=== PATIENT | male | born 1945 | race Caucasian/White ===

== ENCOUNTER 2016-10-29 06:26 | Emergency (ER) | payer MEDICARE ==
[2016-10-29] MEDS ORDERED: cloNIDine HCL 0.1 MG TAB PO STA ×2 (06:41→06:42)
--- NOTE | 2016-10-29 06:48 | ED ---
General Adult HPI - General Source: patient, family, RN notes reviewed Mode of arrival: ambulatory Limitations: no limitations <Ethan Snyder - Last Filed: 10/29/16 06:46> <Ethan Lainez - Last Filed: 10/29/16 07:52> - General Chief complaint: ENT Stated complaint: Nosebleed Time Seen by Provider: 10/29/16 06:30 - History of Present Illness Initial comments: This is a 71-year-old male presents emergency Department with a 45 minute history of a nosebleed. Patient states that he was finally also in his left naris started bleeding. Patient states he try to hold up at he was getting blood on the back associated decided to come to the emergency department. Patient denies any trauma to the nose. Patient denies any blood thinners. Patient denies any previous history of significant nosebleeds. (Ethan Snyder) - Related Data Home Medications Medication Instructions Recorded Confirmed Atorvastatin [Lipitor] 20 mg PO DAILY 09/07/15 10/29/16 Levothyroxine Sodium [Synthroid] 175 mcg PO DAILY 09/07/15 10/29/16 Fluticasone Nasal [place]se[place] [Flonase 2 spr EA NOSTRIL DAILY 10/29/16 10/29/16 Nasal Osse[place]] Ranitidine HCl [Zantac] 150 mg PO DAILY PRN 10/29/16 10/29/16 Allergies Allergy/AdvReac Type Severity Reaction Status Date / Time Penicillins AdvReac Swelling Verified 10/29/16 07:12 Review of Systems ROS Other: All systems not noted in ROS Statement are negative. <Ethan Snyder - Last Filed: 10/29/16 06:46> ROS Other: All systems not noted in ROS Statement are negative. <Ethan Lainez - Last Filed: 10/29/16 07:52> ROS Statement: Those systems with pertinent positive or pertinent negative responses have been documented in the HPI. 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 Patient is in mild distress. EYES Patient's pupils are equal and round. Extraocular motion is intact ENT Unable to examine of the nose isn't actively bleeding. A clamp was placed on his nose immediately. SKIN Unremarkable NEURO The patient is alert and oriented 3 PYSCH Patient has normal interpersonal interactions. (Ethan Snyder) Course <Ethan Snyder - Last Filed: 10/29/16 06:46> <Ethan Lainez - Last Filed: 10/29/16 07:52> Vital Signs 10/29/16 10/29/16 06:28 07:16 Temperature 97.5 F L Pulse Rate 104 H 85 Respiratory 20 18 Rate Blood Pressure 181/114 173/109 O2 Sat by Pulse 96 94 L Oximetry - Reevaluation(s) Reevaluation #1: 10/29/16 07:52 Nosebleed has stopped and remains controlled (Ethan Lainez) Medical Decision Making <Ethan Snyder - Last Filed: 10/29/16 06:46> <Ethan Lainez - Last Filed: 10/29/16 07:52> - Medical Decision Making Dr. Lainez will be taking over the care of this patient at 7 AM (Ethan Snyder) 71 male to the ER for evaluation. Patient presents with nosebleed, high blood pressure, blood pressure is much improved at this point,. Patient will be discharged home as he is refusing further intervention at this time (Ethan Lainez) Disposition <Ethan Snyder - Last Filed: 10/29/16 06:46> <Ethan Lainez - Last Filed: 10/29/16 07:52> Clinical Impression: Epistaxis Disposition: HOME SELF-CARE Condition: Good Instructions: Nosebleed (ED) Referrals: David Zaidi MD [Primary Care Provider] - 1-2 days
[2016-10-29 08:09] VITALS: BP 168/106; PULSE 80; RESP 16; TEMP 97.6
== END 2016-10-29 08:08 | disposition home or self-care (01) ==
LOC: EC 06:26
DX: R04.0 Epistaxis (principal); E78.5 Hyperlipidemia, unspecified; I10 Essential (primary) hypertension; E07.9 Disorder of thyroid, unspecified; Z79.51 Long term (current) use of inhaled steroids; Z79.899 Other long term (current) drug therapy; Z88.0 Allergy status to penicillin; Z87.09 Personal history of other diseases of the respiratory system
CPT/HCPCS: 99283

== ENCOUNTER → 2018-07-06 | Outpatient (CLI) | payer MEDICARE ==
[2018-07-06 07:11] LABS: Appearance,Urine Clear (Clear); Bilirubin,Urine Negative (Negative); Blood,Urine Negative (Negative); Color,Urine Yellow; Glucose,Urine (UA) Negative (Negative); Ketones,Urine Negative (Negative); Leukocyte Esterase,Urine Negative (Negative); Nitrite,Urine Negative (Negative); Protein,Urine Trace (Negative); Specific Gravity,Urine 1.022 (1.001-1.035); Urobilinogen,Urine <2.0 mg/dL (<2.0)
[2018-07-06 07:14] LABS: HCT 47.4 % (39.0-53.0); HGB 15.2 gm/dL (13.0-17.5); MCH 28.9 pg (25.0-35.0); MCV 90.3 fL (80.0-100.0); Mean Platelet Volume 6.3; Platelet Count 305 k/uL (150-450); RBC 5.25 m/uL (4.30-5.90); RDW 12.8 % (11.5-15.5); WBC 6.5 k/uL (3.8-10.6)
[2018-07-06 12:48] LABS: T4, Free (Free Thyroxine) 1.2 ng/dL (0.80-1.80)
[2018-07-06 12:57] LABS: Albumin 4.1 g/dL (3.80-4.90); Albumin/Globulin Ratio 2.28 (1.20-2.10); Calcium 8.8 mg/dL (8.7-10.3); Globulin 1.8 g/dL (1.6-3.3); LDL Cholesterol,Calculated 80.8 mg/dL (0.0-131.0); Potassium 4.9 mmol/L (3.5-5.5); Total Bilirubin 0.5 mg/dL (0.3-1.2); Total Protein 5.9 g/dL (6.2-8.2); VLDL Calculation 13.2 mg/dL (5.00-40.00)
== END ==
LOC: LABWHC1 06:35
PROVIDERS: ATTEND Internal Medicine
DX: C73 Malignant neoplasm of thyroid gland (principal); N40.0 Benign prostatic hyperplasia without lower urinary tract symptoms; E78.5 Hyperlipidemia, unspecified; E03.9 Hypothyroidism, unspecified; Z12.5 Encounter for screening for malignant neoplasm of prostate
CPT/HCPCS: 84439; 80061; 80053; 84443; 85027; 81003; 36415; G0103

== ENCOUNTER 2018-08-02 08:00 | Emergency (ER) | payer MEDICARE ==
[2018-08-02] MEDS ORDERED: SODIUM CHLORIDE 0.9% 1,000 ML IV STA (08:33)
--- NOTE | 2018-08-02 08:39 | ED ---
General Adult HPI - General Source: patient, RN notes reviewed Mode of arrival: ambulatory Limitations: no limitations <Alan Orozco - Last Filed: 08/02/18 10:28> <Amandeep Munguia - Last Filed: 08/02/18 10:45> - General Chief complaint: Abdominal Pain Stated complaint: ABDOMINAL PAIN Time Seen by Provider: 08/02/18 08:29 - History of Present Illness Initial comments: Patient 72-year-old male presented to the emergency room today with a chief complaint of right lower quadrant pain that started yesterday. Patient states an episode in the morning. He does admit that he felt nauseated. He states his pain went away was fine throughout the day. He states he woke up again this morning with pain in the right lower quadrant. Describes it as a tall pain. Patient states pain is again improving. He denies any other complaints or symptoms at this time. States not had similar symptoms in the past. Patient denies any recent fever, chills, shortness of breath, chest pain, back pain, numbness or tingling, dysuria or hematuria, constipation or diarrhea, headaches or visual changes, or any other complaints. (Alan Orozco) - Related Data Home Medications Medication Instructions Recorded Confirmed Atorvastatin [Lipitor] 20 mg PO DAILY 09/07/15 08/02/18 Levothyroxine Sodium [Synthroid] 175 mcg PO DAILY 09/07/15 08/02/18 Ibuprofen [Motrin Ib] 600 mg PO Q6HR PRN 08/02/18 08/02/18 Losartan [Cozaar] 50 mg PO DAILY 08/02/18 08/02/18 Allergies Allergy/AdvReac Type Severity Reaction Status Date / Time Penicillins AdvReac Swelling Verified 08/02/18 10:10 Review of Systems ROS Other: All systems not noted in ROS Statement are negative. <Alan Orozco - Last Filed: 08/02/18 10:28> ROS Other: All systems not noted in ROS Statement are negative. <Amandeep Munguia - Last Filed: 08/02/18 10:45> ROS Statement: Those systems with pertinent positive or pertinent negative responses have been documented in the HPI. 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 Eye: There is normal conjunctiva bilaterally. No signs of icterus. Ears, nose, mouth and throat: There are moist mucous membranes and no oral lesions. Neck: The neck is supple, there is no tenderness or JVD. Cardiovascular: There is a regular rate and rhythm. No murmur, rub or gallop is appreciated. Respiratory: Lungs are clear to auscultation, respirations are non-labored, breath sounds are equal. No wheezes, stridor, rales, or rhonchi. Gastrointestinal: Abdomen soft nontender. No rebound, guarding or CVA tenderness. Musculoskeletal: Normal ROM, no tenderness. Neurological: A&O x 3. CN II-XII intact, There are no obvious motor or sensory deficits. Coordination appears grossly intact. Speech is normal. Skin: Skin is warm and dry and no rashes or lesions are noted. Psychiatric: Cooperative, appropriate mood & affect, normal judgment. (Alan Orozco) Course <Alan Orozco - Last Filed: 08/02/18 10:28> <Amandeep Munguia - Last Filed: 08/02/18 10:45> Vital Signs 08/02/18 08/02/18 08:09 09:01 Temperature 97.9 F 98.5 F Pulse Rate 101 H 91 Respiratory 18 16 Rate Blood Pressure 170/109 177/110 O2 Sat by Pulse 96 93 L Oximetry - Reevaluation(s) Reevaluation #1: 08/02/18 10:45 PA supervision: I proceeded [id number] evaluation the patient did discuss the findings with him and his . Patient did have a kidney stone that appears with past the bladder at this time. He has no prior history of kidney stones. I do agree with the assessment and plan. (Amandeep Munguia) Medical Decision Making - Lab Data Result diagrams: 08/02/18 08:41 08/02/18 08:41 <Alan Orozco - Last Filed: 08/02/18 10:28> - Lab Data Result diagrams: 08/02/18 08:41 08/02/18 08:41 <Amandeep Munguia - Last Filed: 08/02/18 10:45> - Medical Decision Making Patient reexamined showing no signs of distress is resting comfortably. Has no pain. Patient's CT abdomen and pelvis reviewed and does show kidney stone in the bladder. Patient had small amount of blood in his urine. Patient's pain- free at this time. He is advised on family doctor over the next 2 days or urologist. Prostate was enlarged. Patient will be discharged advised return for any other concerns. (Alan Orozco) - Lab Data Lab Results 08/02/18 08/02/18 08/02/18 Range/Units 08:41 08:41 08:43 WBC 10.4 (3.8-10.6) k/uL RBC 5.50 (4.30-5.90) m/uL Hgb 16.1 (13.0-17.5) gm/dL Hct 49.8 (39.0-53.0) % MCV 90.6 (80.0-100.0) fL MCH 29.2 (25.0-35.0) pg MCHC 32.3 (31.0-37.0) g/dL RDW 13.1 (11.5-15.5) % Plt Count 263 (150-450) k/uL Neutrophils % 78 % Lymphocytes % 12 % Monocytes % 8 % Eosinophils % 1 % Basophils % 0 % Neutrophils # 8.2 H (1.3-7.7) k/uL Lymphocytes # 1.2 (1.0-4.8) k/uL Monocytes # 0.8 (0-1.0) k/uL Eosinophils # 0.1 (0-0.7) k/uL Basophils # 0.0 (0-0.2) k/uL Sodium 143 (137-145) mmol/L Potassium 4.1 (3.5-5.1) mmol/L Chloride 110 H (98-107) mmol/L Carbon Dioxide 23 (22-30) mmol/L Anion Gap 10 mmol/L BUN 20 (9-20) mg/dL Creatinine 1.49 H (0.66-1.25) mg/dL Est GFR (CKD-EPI)AfAm 54 (>60 ml/min/1.73 sqM) Est GFR (CKD-EPI)NonAf 47 (>60 ml/min/1.73 sqM) Glucose 124 H (74-99) mg/dL Calcium 9.9 (8.4-10.2) mg/dL Total Bilirubin 0.9 (0.2-1.3) mg/dL AST 29 (17-59) U/L ALT 38 (21-72) U/L Alkaline Phosphatase 99 (38-126) U/L Troponin I (0.000-0.034) ng/mL Total Protein 7.7 (6.3-8.2) g/dL Albumin 4.5 (3.5-5.0) g/dL Amylase 96 (30-110) U/L Lipase 105 (23-300) U/L Urine Color Yellow Urine Appearance Cloudy (Clear) Urine pH 5.5 (5.0-8.0) Ur Specific Ding[place] 1.029 (1.001-1.035) Urine Protein 1+ H (Negative) Urine Glucose (UA) Negative (Negative) Urine Ketones Negative (Negative) Urine Blood Trace H (Negative) Urine Nitrite Negative (Negative) Urine Bilirubin Negative (Negative) Urine Urobilinogen 2.0 (<2.0) mg/dL Ur Leukocyte Esterase Negative (Negative) Urine RBC 32 H (0-5) /hpf Urine WBC 4 (0-5) /hpf Hyaline Casts 4 H (0-2) /lpf Urine Mucus Many H (None) /hpf 08/02/18 Range/Units 08:45 WBC (3.8-10.6) k/uL RBC (4.30-5.90) m/uL Hgb (13.0-17.5) gm/dL Hct (39.0-53.0) % MCV (80.0-100.0) fL MCH (25.0-35.0) pg MCHC (31.0-37.0) g/dL RDW (11.5-15.5) % Plt Count (150-450) k/uL Neutrophils % % Lymphocytes % % Monocytes % % Eosinophils % % Basophils % % Neutrophils # (1.3-7.7) k/uL Lymphocytes # (1.0-4.8) k/uL Monocytes # (0-1.0) k/uL Eosinophils # (0-0.7) k/uL Basophils # (0-0.2) k/uL Sodium (137-145) mmol/L Potassium (3.5-5.1) mmol/L Chloride (98-107) mmol/L Carbon Dioxide (22-30) mmol/L Anion Gap mmol/L BUN (9-20) mg/dL Creatinine (0.66-1.25) mg/dL Est GFR (CKD-EPI)AfAm (>60 ml/min/1.73 sqM) Est GFR (CKD-EPI)NonAf (>60 ml/min/1.73 sqM) Glucose (74-99) mg/dL Calcium (8.4-10.2) mg/dL Total Bilirubin (0.2-1.3) mg/dL AST (17-59) U/L ALT (21-72) U/L Alkaline Phosphatase (38-126) U/L Troponin I <0.012 (0.000-0.034) ng/mL Total Protein (6.3-8.2) g/dL Albumin (3.5-5.0) g/dL Amylase (30-110) U/L Lipase (23-300) U/L Urine Color Urine Appearance (Clear) Urine pH (5.0-8.0) Ur Specific Ding[place] (1.001-1.035) Urine Protein (Negative) Urine Glucose (UA) (Negative) Urine Ketones (Negative) Urine Blood (Negative) Urine Nitrite (Negative) Urine Bilirubin (Negative) Urine Urobilinogen (<2.0) mg/dL Ur Leukocyte Esterase (Negative) Urine RBC (0-5) /hpf Urine WBC (0-5) /hpf Hyaline Casts (0-2) /lpf Urine Mucus (None) /hpf Disposition Is patient prescribed a controlled substance at d/c from ED?: No Time of Disposition: 10:29 <Alan Orozco - Last Filed: 08/02/18 10:28> <Amandeep Munguia - Last Filed: 08/02/18 10:45> Clinical Impression: Kidney stone Disposition: HOME SELF-CARE Condition: Good Instructions (If sedation given, give patient instructions): Kidney Stones (ED) Additional Instructions: Please use medication as discussed. Please follow-up with urologist/family doctor in the next 2 days of symptoms have not improved. Please return to emergency room if the symptoms increase or worsen or for any other concerns. Referrals: David Zaidi MD [Primary Care Provider] - 1-2 days Landen Cramer MD [STAFF PHYSICIAN] - 1-2 days
[2018-08-02 09:03] VITALS: RESP 16
[2018-08-02 09:14] LABS: Basophils % (A) 0 %; Eosinophils # (A) 0.1 k/uL (0-0.7); Eosinophils % (A) 1 %; HCT 49.8 % (39.0-53.0); HGB 16.1 gm/dL (13.0-17.5); Lymphocytes # (A) 1.2 k/uL (1.0-4.8); Lymphocytes % (A) 12 %; MCH 29.2 pg (25.0-35.0); MCHC 32.3 g/dL (31.0-37.0); MCV 90.6 fL (80.0-100.0); Mean Platelet Volume 6.7; Monocytes # (A) 0.8 k/uL (0-1.0); Monocytes % (A) 8 %; Neutrophils # (A) 8.2 k/uL (1.3-7.7); Neutrophils % (A) 78 %; Platelet Count 263 k/uL (150-450); RDW 13.1 % (11.5-15.5); WBC 10.4 k/uL (3.8-10.6)
[2018-08-02 09:18] LABS: Appearance,Urine Cloudy (Clear); Bilirubin,Urine Negative (Negative); Blood,Urine Trace (Negative); Color,Urine Yellow; Glucose,Urine (UA) Negative (Negative); Hyaline Casts,Urine 4 /lpf (0-2); Ketones,Urine Negative (Negative); Leukocyte Esterase,Urine Negative (Negative); Mucus,Urine Many /hpf; Nitrite,Urine Negative (Negative); PH, Urine 5.5 (5.0-8.0); Protein,Urine 1+ (Negative); RBC,Urine 32 /hpf (0-5); Specific Gravity,Urine 1.029 (1.001-1.035); WBC,Urine 4 /hpf (0-5)
[2018-08-02 09:35] LABS: Albumin 4.5 g/dL (3.5-5.0); Calcium 9.9 mg/dL (8.4-10.2); Total Bilirubin 0.9 mg/dL (0.2-1.3); Total Protein 7.7 g/dL (6.3-8.2)
[2018-08-02 09:36] LABS: Potassium 4.1 mmol/L (3.5-5.1)
--- NOTE | 2018-08-02 10:13 | CT ---
EXAMINATION TYPE: CT abdomen pelvis wo con DATE OF EXAM: 08/02/2018 COMPARISON: None HISTORY: RLQ pain CT DLP: 607.17 mGycm Examination of the solid and hollow viscera is limited given the lack of contrast. FINDINGS: LUNG BASES: No evidence for nodule. No evidence for infiltrate. Small hiatal hernia. LIVER/GB: The gallbladder is unremarkable. No space-occupying hepatic lesion. PANCREAS: No pancreatic mass identified. No inflammatory process seen. SPLEEN: No evidence for splenomegaly. No intrasplenic lesions seen. ADRENALS: No adrenal nodules identified. No evidence for thickening. KIDNEYS: 3 mm calculus is noted within the urinary bladder. I suspect that this reflects recently pas sed calculus given the right perinephric stranding and mild residual hydronephrosis. No obstructing c alculus is currently identified. Left renal collecting system is of normal caliber. No renal masses a re detected. BOWEL: Intraluminal lipoma at the level of the transverse duodenum. Appendix has a normal appearance. No evidence of bowel obstruction. No inflammatory process. Lymph nodes: No evidence for adenopathy greater than 1 cm. Abdominal aorta: Atheromatous changes seen. No evidence for aneurysm. Genital organs: Prostate gland enlargement. Other: Fat-containing inguinal hernias noted. IMPRESSION: 1. Mild residual right-sided hydronephrosis with perinephric stranding. Calculus is noted within the urinary bladder consistent with recent stone passage. 2. Lipoma of the transverse duodenum. 3. Prostate gland enlargement.
[2018-08-02 10:52] VITALS: BP 173/97; PULSE 89; TEMP 97.6
== END 2018-08-02 10:50 | disposition home or self-care (01) ==
LOC: EC 08:00
DX: N20.0 Calculus of kidney (principal); N40.0 Benign prostatic hyperplasia without lower urinary tract symptoms; E78.5 Hyperlipidemia, unspecified; I10 Essential (primary) hypertension; E07.9 Disorder of thyroid, unspecified; Z90.89 Acquired absence of other organs; Z79.890 Hormone replacement therapy; Z79.899 Other long term (current) drug therapy; Z88.0 Allergy status to penicillin
CPT/HCPCS: 36415; 74176; 80053; 81001; 82150; 83690; 84484; 85025; 96360; 99284

== ENCOUNTER 2018-08-15 07:05 | Inpatient (IN) | payer MEDICARE ==
[2018-08-15] MEDS ORDERED: ATORVASTATIN 80 MG TAB PO STA (07:27)
[2018-08-15] MEDS ORDERED: ASPIRIN 81 MG PO STA (07:27)
[2018-08-15] MEDS ORDERED: HEPARIN SODIUM,PORCINE 5,000 UNIT/ML 1 ML VIAL SQ STA (07:27)
[2018-08-15] MEDS ORDERED: NALOXONE 0.4 MG/ML 1 ML VIAL IV PRN (07:28)
--- NOTE | 2018-08-15 07:31 | ED ---
General Adult HPI - General Chief complaint: Chest Pain Stated complaint: chest pain Time Seen by Provider: 08/15/18 07:12 Source: patient, RN notes reviewed, old records reviewed Mode of arrival: ambulatory Limitations: no limitations - History of Present Illness Initial comments: 72-year-old male presenting for evaluation of chest pain. Patient's symptoms began at approximately 9:30 PM, was 10 hours prior to arrival. Began as left shoulder pain, progressed to left-sided chest pain. He was diaphoretic and had several episodes of nausea and vomiting. Pain is improved this morning, patient feels unwell, states he feels like he has the flu. No cough. No dyspnea. No abdominal pain. No history of CAD. Patient does have history of hypertension and hyperlipidemia. - Related Data Home Medications Medication Instructions Recorded Confirmed Atorvastatin [Lipitor] 20 mg PO DAILY 09/07/15 08/02/18 Levothyroxine Sodium [Synthroid] 175 mcg PO DAILY 09/07/15 08/02/18 Ibuprofen [Motrin Ib] 600 mg PO Q6HR PRN 08/02/18 08/02/18 Losartan [Cozaar] 50 mg PO DAILY 08/02/18 08/02/18 Allergies Allergy/AdvReac Type Severity Reaction Status Date / Time Penicillins AdvReac Swelling Verified 08/15/18 07:08 Review of Systems ROS Statement: Those systems with pertinent positive or pertinent negative responses have been documented in the HPI. ROS Other: All systems not noted in ROS Statement are negative. 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 Absent: tenderness, meningismus Respiratory exam: Present: normal lung sounds bilaterally. Absent: respiratory distress Cardiovascular Exam: Present: regular rate, normal rhythm GI/Abdominal exam: Present: soft. Absent: distended, tenderness Extremities exam: Present: normal inspection, normal capillary refill, other ( Normal pulse exam, 2+) Neurological exam: Present: alert, oriented X3, CN II-XII intact. Absent: motor sensory deficit Psychiatric exam: Present: normal affect, normal mood Skin exam: Present: warm, intact, diaphoretic. Absent: cyanosis Course Vital Signs 08/15/18 07:08 Temperature 97.5 F L Pulse Rate 104 H Respiratory 18 Rate Blood Pressure 162/108 O2 Sat by Pulse 99 Oximetry EKG Findings - EKG Comments: EKG Findings:: EKG: Normal sinus rhythm, acute KS with ST segment elevation in precordial leads. Rate of 69, TN interval 176, QRS duration 108, QTC 432. Previous EKG obtained 08/02/2018, sinus rhythm with no ST segment changes. Medical Decision Making - Medical Decision Making 72-year-old male history of hypertension and hyperlipidemia presenting for evaluation of chest pain which began 10 hours prior. Pain was typical in nature , left-sided radiating to the left shoulder with diaphoresis, nausea and vomiting. EKG shows acute KS. 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 Case discussed with both cardiology Dr. Renee and admitting physician. Patient taken emergently to [facility]. X-ray, and laboratory studies pending. Disposition Clinical Impression: ST elevation myocardial infarction (STEMI) Disposition: ADMITTED IP TO THIS HOSP Condition: Serious Is patient prescribed a controlled substance at d/c from ED?: No Decision to Admit Reason: Admit from EC Decision Date: 08/15/18 Decision Time: 17:25
[2018-08-15] MEDS ORDERED: LIDOCAINE 1% INJ 10MG/ML (20 ML MDV) SQ ONE (07:47)
[2018-08-15] MEDS ORDERED: fentaNYL (PF) 50 MCG/ML 2 ML AMP IVP ONE (07:47)
--- NOTE | 2018-08-15 07:53 | XR ---
EXAMINATION TYPE: XR chest 1V portable DATE OF EXAM: 08/15/2018 COMPARISON: NONE HISTORY: Chest pain TECHNIQUE: Single frontal view of the chest is obtained. FINDINGS: There are cardiac leads. The aorta is dense. Technique somewhat apical lordotic. There is no focal air space opacity, pleural effusion, or pneumothorax seen. The cardiac silhouette size is w ithin normal limits. The osseous structures are intact. IMPRESSION: No acute process.
[2018-08-15 07:54] LABS: Basophils # (A) 0.1 k/uL (0-0.2); Basophils % (A) 0 %; Eosinophils % (A) 0 %; HCT 45.6 % (39.0-53.0); HGB 14.6 gm/dL (13.0-17.5); Lymphocytes % (A) 6 %; MCHC 32.1 g/dL (31.0-37.0); MCV 90.4 fL (80.0-100.0); Mean Platelet Volume 6.6; Monocytes # (A) 0.7 k/uL (0-1.0); Monocytes % (A) 4 %; Neutrophils # (A) 13.4 k/uL (1.3-7.7); Neutrophils % (A) 88 %; Platelet Count 277 k/uL (150-450); RBC 5.04 m/uL (4.30-5.90); RDW 13.1 % (11.5-15.5); WBC 15.2 k/uL (3.8-10.6)
[2018-08-15] MEDS ORDERED: TICAGRELOR 90 MG TAB PO ONE (07:55)
[2018-08-15] MEDS ORDERED: ONDANSETRON 4 MG/2 ML VIAL IVP ONE (07:55)
[2018-08-15 07:59] LABS: Albumin 4.3 g/dL (3.5-5.0); Calcium 9.7 mg/dL (8.4-10.2); Potassium 4.2 mmol/L (3.5-5.1); Total Bilirubin 0.8 mg/dL (0.2-1.3); Total Protein 7.2 g/dL (6.3-8.2)
[2018-08-15 08:11] LABS: INR 0.9 (<1.2); Prothrombin Time 9.9 sec (9.0-12.0)
[2018-08-15] MEDS ORDERED: BIVALIRUDIN BOLUS 250 MG/50 ML IV ONE (08:16)
[2018-08-15] MEDS ORDERED: BIVALIRUDIN 250 MG in SODIUM CHLORIDE 0.9% 50 ML IV ONE (08:16)
[2018-08-15] MEDS ORDERED: IV FLUID CONTINUATION 1,000 ML IV ONE (08:16)
[2018-08-15] MEDS ORDERED: IOPAMIDOL-370 100ML BTL INJ ONE ×2 (08:21)
[2018-08-15 08:26] LABS: Creatine Kinase MB 24.6 ng/mL (0.0-2.4)
[2018-08-15] MEDS ORDERED: ATROPINE SULFATE 0.1 MG/ML 10ML SYRINGE IV PRN (08:26)
[2018-08-15] MEDS ORDERED: NITROGLYCERIN SL TABS 0.4 MG TAB SUBLINGUAL PRN (08:26)
[2018-08-15] MEDS ORDERED: RX INFO: IV CONTRAST WAS GIVEN 1 EACH MISC MISCELLANE PRN (08:26)
[2018-08-15] MEDS ORDERED: MAG HYDROX/AL HYDROX/SIMETH 30 ML CUP PO PRN (08:26)
[2018-08-15] MEDS ORDERED: SODIUM CHLORIDE 0.9% 1,000 ML IV SCH (08:30)
--- NOTE | 2018-08-15 08:31 | CONS ---
CONSULTATION Mr. Villatoro is a 72-year-old male with a history of hypertension, hyperlipidemia, no prior documented history of coronary artery disease who presented to the emergency room with symptoms of chest discomfort. The discomfort started yesterday evening, persisted throughout the night with nausea, came in early this morning to the emergency room, was noted to have ST-segment elevation in the anterolateral leads with QS pattern. Patient denies any prior history of cardiac disease. He is reasonably active physically without difficulty. He denies any dizziness or palpitation. He denies any PND, orthopnea, or peripheral edema. His coronary risk factors are remarkable for history of hypertension, hyperlipidemia. He is a nonsmoker, nondiabetic. MEDICATION: Include losartan and simvastatin. REVIEW OF SYSTEMS: Persistent has no recent wheezing. No cough. No history of obstructive lung disease. GI SYSTEM: No recent GI bleeding. No peptic ulcer disease. SYSTEM: He had recent nephrolithiasis. NERVOUS SYSTEM: No stroke or seizure. PHYSICAL EXAMINATION: He is a 72-year-old male, alert, oriented, in no apparent distress. Evaluated in the cardiac catheterization lab. Heart rate in the 70s. Blood pressure 134/80. HEAD: Normocephalic. EYES: Sclerae nonicteric. NECK: Good upstroke, no bruit. LUNGS: Clear to auscultation anteriorly. HEART: Regular rate and rhythm, S1, S2. No S3. No rub or gallop appreciated. ABDOMEN: Soft, nontender. Positive bowel sounds, no organomegaly. EXTREMITIES: No edema, intact pulses. EKG reveals sinus mechanism, rate of 69 with QS in V1 to V6 with ST-segment elevation in QS in 1 and aVL consistent with anterolateral wall myocardial infarction. IMPRESSION: 1. Acute anterior myocardial infarction, started last night. 2. Hypertension. 3. Hyperlipidemia. RECOMMENDATION: Will proceed with emergent cardiac catheterization to further assess the status and guide the treatment. Depending on his progress, further recommendation will be made. Thank you for this consult. Will follow with you. MMODL / IJN: [id number] /
[2018-08-15 08:39] LABS: Troponin I 1.22 ng/mL (0.000-0.034)
--- NOTE | 2018-08-15 08:46 | CC ---
CARDIAC CATHETERIZATION REPORT Mr. Villatoro is a 72-year-old male with history of hypertension, hyperlipidemia, who presented with symptoms of chest discomfort that started last night around 9:30, associated with vomiting. He came in early this morning and was noted to have evidence of ST-segment elevation anteriorly with QS pattern. In view of that, recommendation made regarding cardiac catheterization. The procedure, risks and complications were discussed with the patient who is in full understanding and agreement. PROCEDURE: Patient was brought to the dental laboratory technology teacher in a fasting semi-sedated state after receiving fentanyl and Benadryl and achieving moderate conscious sedated state. Using Xylocaine anesthesia and Seldinger technique, a 6-Beninese sheath was introduced in the right femoral artery. Selective right and left angiography was performed. A 6-Beninese FL4 guiding catheter after performing angioplasty and stenting of the LAD, a 6-Beninese 4 bend right Esperanza catheter was introduced into the system and images of the right coronary artery was performed. Following that, a 6-Beninese tight pigtail catheter was introduced in the left ventricle and a 30 degree CARREON view of the left ventricle was obtained. Following that, catheter and sheaths were removed. Hemostasis was obtained with deployment of an Angio-Seal. There was no immediate complication. Patient is returned to his room in stable condition. FINDINGS: LEFT MAIN: This is a large-sized vessel, bifurcating into left circumflex, left anterior descending artery. Left main coronary artery has no evidence of obstructive coronary artery disease. LEFT ANTERIOR DESCENDING ARTERY: This vessel is totally occluded proximally with no antegrade flow. LEFT CIRCUMFLEX: This is a nondominant vessel, giving rise to 2 large obtuse marginal branches. The left circumflex as well as branches have no evidence of obstructive coronary artery disease. RIGHT CORONARY ARTERY: This is a large dominant vessel, bifurcating into PDA and posterolateral segment and branches. The right coronary artery as well as branches have no evidence of obstructive coronary artery disease. LEFT VENTRICULOGRAM: Left ventriculogram is performed in 30-degree CARREON view and revealed a anteroapical akinesis. The ejection fraction is estimated at 25%-30%. There was no significant mitral regurgitation. HEMODYNAMICS: There was no gradient across the aortic valve. The left ventricular end- diastolic pressure is 24 mmHg. CONCLUSION: 1. Acutely occluded proximal LAD. 2. Severely impaired left ventricular systolic function. RECOMMENDATION: In view of finding anatomy, I recommend proceeding with angioplasty and stenting of the LAD. The procedures, risks and complication were discussed with the patient who is in full understanding and agreement. MMODL / IJN: [id number] /
--- NOTE | 2018-08-15 09:07 | LTR ---
DATE OF SERVICE: 08/15/2018 RE: Lee Villatoro Dear Dr. Zaidi; I had the pleasure to perform cardiac catheterization and coronary angioplasty and stenting on Mr. Villatoro At [facility] on August 15 and a full copy of the procedure note will be forwarded to you. In brief, he underwent successful stenting of the proximal LAD with reduction of stenosis from 100% to 0%. Unfortunately, he had significant LV dysfunction on presentation. I am hopeful that we will see some improvement in the LV function otherwise he will be a candidate for a LifeVest prior to his discharge. I will keep you updated on his progress and thank you again for allowing me to participate in this patient's care. Please feel free to call for any questions. Sincerely yours, MD DARCY Gallardo / [place]: [id number] /
--- NOTE | 2018-08-15 09:07 | PTCA ---
PERCUTANEOUSTRANS CORORONARY ANGIOGRAPHY Mr. Villatoro is a 72-year-old male with history of hypertension, hyperlipidemia, who presented with an acute anterior myocardial infarction. His cardiac catheterization revealed acutely occluded proximal LAD. In view of that, recommendation made regarding angioplasty and stenting. The procedure, risks and complications were discussed with the patient who is in full understanding and agreement. PROCEDURE: Using the 6-Ethiopian FL4 guiding catheter, a 0.014 balanced medium weight J-wire was advanced across the lesion, positioned distal LAD. Following that, a 2.5 x 12 mm Trek balloon was advanced and inflation to 10 atmospheres was done. Following that, the balloon was removed and a 4.0 x 18 mm Xience Lucina stent was deployed, postdilated at 14 atmospheres after the last inflation, after appropriate wait, the balloon and the guidewire were withdrawn back in the guiding catheter. Images were obtained and repeated. Those images reveal stable successful stenting. At that point, the guiding catheter, the balloon and the guidewire were removed. Images of the right coronary artery and left ventriculogram was performed. Following that, catheter and sheath were removed. Hemostasis was obtained with deployment of an Angio-Seal. There was no immediate complication. The patient was returned to his room in stable condition. Of note, the patient received Angiomax per protocol as well as oral loading dose of Brilinta. He had no discomfort at the end procedure be it persistent ST-segment elevation. RESULTS: Successful stenting of the totally occluded proximal LAD with reduction of stenosis from 100% to 0%. RECOMMENDATION: Patient will be continued on aspirin, Brilinta, beta yassine, POLA inhibitor, statin, and unfortunately because of the delay in the patient seeking medical attention, it is possible that some of the LV systolic dysfunction will be permanent. Will follow him closely to see if there is no improvement and the patient may be a candidate for a LifeVest. Those findings and recommendation were discussed with the patient and his family who are in full understanding and agreement. Duration of the procedure 27 minutes. MMODL / IJN: [id number] /
[2018-08-15 15:47] LABS: Glucose,Whole Blood 135 mg/dL (75-99)
[2018-08-15] MEDS: METOPROLOL TARTRATE 25 MG TAB PO SCH ×2 (16:41→20:56)
[2018-08-15] MEDS: SPIRONOLACTONE 25 MG TAB PO SCH (16:51)
[2018-08-15] MEDS: LOSARTAN 25 MG TAB PO SCH (16:51)
[2018-08-15] MEDS ORDERED: ONDANSETRON 4 MG/2 ML VIAL IVP PRN (21:19)
--- NOTE | 2018-08-15 23:47 | HP ---
HISTORY AND PHYSICAL CHIEF COMPLAINT: Chest and shoulder pain. HISTORY OF PRESENT ILLNESS: This 72-year-old gentleman presents to the emergency room with a complaint of about a 10-hour duration of chest pain which is mostly left upper chest, shoulder and both arms. The patient had significant nausea and vomiting with that but denied any shortness of breath; had some diaphoresis. He had the pain off and on through the night. He thought it was his bad shoulder. At other times he thought it was his stomach. The patient did not relate this to cardiac pain. In the morning, since he was not feeling well, he presented to the emergency room. In the ER the patient was noted on EKG to have QS patterns in the anterior leads, but significant ST elevations with also some ST elevation in the high lateral leads. In view of this, a STEMI was alerted and the patient was taken for cardiac cath by Dr. Renee. The patient had a total occlusion of the LAD. This was stented. There was no collateral circulation . The patient also had a low ejection fraction on the left ventricular function. He does not have many symptoms of CHF. The patient denies any symptoms of similar nature in the recent past. I have seen him post procedure this evening when I was called at about 4:00. I was not informed about the patient by the ER. The nurse had called me regarding the patient to inform me that the patient had been admitted under my name. 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 His blood pressures in the office are high; however, he says his blood pressure he monitors at home has been in normal range. The patient also has a past history of gastroesophageal reflux diverticulosis of the colon without complication and herpes zoster infection in the past. PAST SURGICAL HISTORY: Total thyroidectomy and a C3 schwannoma. SOCIAL HISTORY: Patient is , lives with his spouse. 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 He does exercise regularly at least 6 days a week. PERSONAL HISTORY: Never a smoker. Alcohol occasionally only, which is in fact very rarely. FAMILY MEDICAL HISTORY: Father at the age of 79 of cancer of the esophagus. Mother at the age of 99 with valvular heart disease. Brother is 75 with history of carcinoma of the bladder, doing reasonably well. He also has carcinoma of the prostate. A brother 61 has LD. Daughter, 40, in good health. Daughter, 37, in good health. REVIEW OF SYSTEMS: NEURO: Denies any headaches, dizziness. No double vision or blurred vision. No symptoms of TIA or syncope or seizures. PSYCH: No anxiety, depression. CARDIAC: Denies chest pain at present; earlier had the symptoms as mentioned above. RESPIRATORY: Denies any shortness of breath, cough, hemoptysis. GI: Had nausea, vomiting. No abdominal pain, diarrhea, constipation. : No symptoms of dysuria, hematuria. EXTREMITIES: No pain, edema. CONSTITUTIONAL: No fever, chills. HEMATOLOGICAL: No anemia or bleeding disorder. ENDOCRINE: No history of diabetes mellitus. History of hypothyroidism. SKIN: No rashes. CONSTITUTIONAL: No fever or chills, weight gain, weight loss. PHYSICAL EXAMINATION: [id number] gentleman who appears younger than stated age. VITAL SIGNS AT THE TIME OF MY EVALUATION: The patient was afebrile, pulse 67, respirations 17, blood pressure 120/82, pulse ox 94% on room air. HEENT: Normocephalic. Neck suppler. Pupils reactive. Nostrils clear. Oral cavity moist. Ears revealed no drainage. NECK: No JVD, carotid bruits or thyromegaly. CHEST: Clear to auscultation and percussion. CARDIAC: Normal S1, S2 with no gallops, murmurs or rubs appreciated. Rhythm was regular. ABDOMEN: Soft. No palpable masses. Bowel sounds normal. No organomegaly. No abdominal bruits. Extremities revealed no edema. Good pulses, both upper and lower extremities. NEUROLOGIC: Awake, alert, oriented x3 with well-coordinated movements. LABORATORY ASSESSMENT: White count 15.2, hemoglobin normal at 14.6. PT and INR normal. Electrolytes normal. BUN 26, creatinine 1.24, GFR 59, glucose random 157. CPK 275, troponin 1.220. EKG reveals QS pattern in anterior leads with ST elevation. Chest x-ray reveals no acute process. HOME MEDICATIONS: Include: 1. Losartan 50 mg daily. 2. Levothyroxine 175 mcg daily. 3. Ibuprofen p.r.n. 4. Lipitor 20 mg daily. ASSESSMENT: 1. Acute myocardial infarction. 2. Status post percutaneous transluminal coronary angioplasty and stenting of the left anterior descending coronary artery. 3. History of carcinoma of the thyroid. 4. Hypothyroidism, on replacement therapy. 5. Hyperlipidemia, on medical therapy. 6. Essential hypertension, on medical therapy. 7. Ischemic cardiomyopathy. PLAN: Patient is stable. Continue present medical regimen. Patient's condition was discussed with the patient. Medications, dietary regimens and exercise regimens down the road have been reviewed. Patient's condition is stable at present. Prognosis guarded. MMODL / IJN: [id number] /
[2018-08-16] MEDS: ZOLPIDEM 5 MG TAB PO PRN ×2 (00:17→22:42)
[2018-08-16 05:07] LABS: Basophils % (A) 0 %; Eosinophils # (A) 0.1 k/uL (0-0.7); Eosinophils % (A) 1 %; HCT 40.3 % (39.0-53.0); HGB 13.5 gm/dL (13.0-17.5); Lymphocytes # (A) 1.8 k/uL (1.0-4.8); Lymphocytes % (A) 15 %; MCH 30.2 pg (25.0-35.0); MCHC 33.4 g/dL (31.0-37.0); MCV 90.5 fL (80.0-100.0); Mean Platelet Volume 6.6; Monocytes % (A) 9 %; Neutrophils # (A) 8.7 k/uL (1.3-7.7); Neutrophils % (A) 74 %; Platelet Count 238 k/uL (150-450); RBC 4.45 m/uL (4.30-5.90); RDW 13.4 % (11.5-15.5); WBC 11.8 k/uL (3.8-10.6)
[2018-08-16 05:25] LABS: Calcium 8.8 mg/dL (8.4-10.2); Potassium 4.5 mmol/L (3.5-5.1)
[2018-08-16] MEDS: LEVOTHYROXINE 75 MCG TAB PO SCH (06:49)
[2018-08-16] MEDS: LEVOTHYROXINE 100 MCG TAB PO SCH (06:49)
--- NOTE | 2018-08-16 08:21 | PN ---
PROGRESS NOTE Mr. Villatoro is a 72-year-old male who presented with an acute anterior wall myocardial infarction with total occluded LAD, underwent stenting of that vessel. He is doing well this morning. He is denying any chest pain. His breathing has been stable. He denies any dizziness or palpitation. He denies any nausea. He is in sinus mechanism and hemodynamically he is stable. He continued to be on aspirin once a day, Lipitor 80 mg daily, losartan 25 mg daily, metoprolol tartrate 25 mg twice a day, Aldactone 25 mg daily, Brilinta 90 mg twice a day. PHYSICAL EXAMINATION: Blood pressure 117/70 with the heart rate in the 60s. LUNGS: Clear. HEART: Regular rate and rhythm. S1, S2. No S3. No rub. ABDOMEN: Soft, nontender. EXTREMITIES: No edema. Right groin hematoma. EKG revealed an evolving anterior wall myocardial infarction with QS pattern. LAB DATA: Lab data revealed a BUN and creatinine 20 and 1.13, potassium 4.5. Peak troponin 90.5 LDL is 72. Hemoglobin is 13.5. IMPRESSION: 1. Status post anterior myocardial infarction with severe ischemic cardiomyopathy and stenting of the LAD. 2. History of hypertension. 3. Hyperlipidemia. RECOMMENDATION: We will obtain an echocardiogram with Doppler today. I will follow his LV systolic function. Increase his level activity. He should be able to be transferred to telemetry floor today. If his LV function remains poor and below 35%, he will be a candidate for a LifeVest. MMJHONATAN / ELBAN: [id number] /
[2018-08-16] MEDS: METOPROLOL TARTRATE 25 MG TAB PO SCH ×3 (08:31→21:14)
[2018-08-16] MEDS: SPIRONOLACTONE 25 MG TAB PO SCH (08:31)
[2018-08-16] MEDS: ASPIRIN 81 MG PO SCH (08:31)
[2018-08-16] MEDS: TICAGRELOR 90 MG TAB PO SCH ×2 (08:32→20:01)
[2018-08-16] MEDS: LOSARTAN 25 MG TAB PO SCH (08:33)
[2018-08-16 10:00] VITALS: BMI 28.2
--- NOTE | 2018-08-16 10:26 | ECHOF ---
Referral Reason:mi MEASUREMENTS -------- HEIGHT: 180.3 cm WEIGHT: 90.7 kg BP: 123/80 IVSd: 1.1 cm (0.6 - 1.1) LVIDd: 5.4 cm (3.9 - 5.3) LVPWd: 1.2 cm (0.6 - 1.1) IVSs: 1.1 cm LVIDs: 4.5 cm LVPWs: 1.5 cm LAESV Index (A-L): 27.53 ml/m Ao Diam: 2.9 cm (2.0 - 3.7) AV Cusp: 1.6 cm (1.5 - 2.6) LA Diam: 3.8 cm (2.7 - 3.8) MV EXCURSION: 18.742 mm (> 18.000) MV EF SLOPE: 169 mm/s (70 - 150) EPSS: 0.4 cm MV E Pa: 0.90 m/s MV DecT: 239 ms MV A Pa: 0.84 m/s MV E/A Ratio: 1.06 RAP: 5.00 mmHg RVSP: 31.19 mmHg FINDINGS -------- Sinus rhythm. This was a technically good study. The left ventricular size is normal. There is borderline concentric left ventricular hypertrophy. Overall left ventricular systolic function is moderate-severely impaired with, an EF between 30 - 35 %. Basal anteroseptal LV wall motion is normal. Mid anteroseptal LV wall motion is hypokinetic. Apical anterior LV wall motion is hypokinetic. Apical lateral LV wall motion is hypokinetic. Apical inferior LV wall motion is hypokinetic. Apical septum LV wall motion is hypokinetic. Se ptal Hypokinesis The right ventricle is normal in size and function. Normal LA size by volume 22+/-6 ml/m2. The right atrium is normal in size. Aortic valve is trileaflet and is mildly thickened. The mitral valve leaflets are mildly thickened. Moderate mitral regurgitation is present. Moderate tricuspid regurgitation present. The right ventricular systolic pressure, as measured by Ronnie silverman, is 31.19mmHg. Pulmonic valve appears structurally normal. The aortic root size is normal. Normal inferior vena cava with normal inspiratory collapse consistent with estimated right atrial pre ssure of 5 mmHg. The pericardium is normal. CONCLUSIONS -------- 1. Sinus rhythm. 2. This was a technically good study. 3. The left ventricular size is normal. 4. There is borderline concentric left ventricular hypertrophy. 5. Overall left ventricular systolic function is moderate-severely impaired with, an EF between 30 - 35 %. 6. Basal anteroseptal LV wall motion is normal. 7. Mid anteroseptal LV wall motion is hypokinetic. 8. Apical anterior LV wall motion is hypokinetic. 9. Apical lateral LV wall motion is hypokinetic. 10. Apical inferior LV wall motion is hypokinetic. 11. Apical septum LV wall motion is hypokinetic. 12. Septal Hypokinesis 13. The right ventricle is normal in size and function. 14. Normal LA size by volume 22+/-6 ml/m2. 15. The right atrium is normal in size. 16. Aortic valve is trileaflet and is mildly thickened. 17. The mitral valve leaflets are mildly thickened. 18. Moderate mitral regurgitation is present. 19. Moderate tricuspid regurgitation present. 20. The right ventricular systolic pressure, as measured by Doppler, is 31.19mmHg. 21. Pulmonic valve appears structurally normal. 22. The aortic root size is normal. 23. Normal inferior vena cava with normal inspiratory collapse consistent with estimated right atrial pressure of 5 mmHg. 24. The pericardium is normal. [employer] ARCHITECT: Doris Salinas RDCS
[2018-08-16 14:04] LABS: Magnesium 1.8 mg/dL (1.6-2.3)
[2018-08-16] MEDS ORDERED: Magnesium Replacement Protocol 1 EACH MISC MISCELLANE PRN (16:21)
[2018-08-16] MEDS: MAGNESIUM SULFATE-D5W PMX 1 GM in DEXTROSE/WATER 1 100ML.BAG IVPB SCH ×2 (16:32→17:47)
[2018-08-16] MEDS: ATORVASTATIN 80 MG TAB PO SCH (20:00)
--- NOTE | 2018-08-16 23:27 | PN ---
PROGRESS NOTE CHIEF COMPLAINT: Re-evaluation. HISTORY OF PRESENT ILLNESS: This 72-year-old gentleman was admitted to the hospital yesterday with pain across the shoulders and down the arm. The patient had evidence of an ST-elevated myocardial infarction, anterior wall. He also had Q-waves on the EKG. He underwent stenting of the LAD, which was 100% blocked. Since then the patient is feeling much better. He did have one episode of some nausea and vomiting last evening. Subsequent to that he has not felt any symptoms. Denies any chest pain, shortness of breath, headaches, dizziness. At present he is more concerned about what the future holds for him. REVIEW OF SYSTEMS: NEURO: Denies any headaches, dizziness. No visual symptoms. PSYCH: No anxiety. CARDIAC: Denies chest pain, angina, palpitations. RESPIRATORY: Denies shortness of breath, cough, hemoptysis. GI: No nausea, vomiting, abdominal pain, diarrhea. No bowel movement yet. : No symptoms of dysuria or hematuria. EXTREMITIES: Denies pain, edema. CONSTITUTIONAL: No fever, chills. PHYSICAL EXAMINATION: Pleasant gentleman, at present in no distress. VITAL SIGNS: Temperature 98.7, pulse 70, respirations 22, blood pressure 117/80, pulse ox 92% on room air. HEENT: Normocephalic. NECK: Supple. No JVD. CHEST: Clear to auscultation and percussion. CARDIAC: Normal S1, S2 with no gallops, murmurs or rubs appreciated. ABDOMEN: Soft. No palpable masses. Bowel sounds normal. No organomegaly. No abdominal bruits. Extremities reveal no edema. Good pulses, both upper and lower extremities. NEUROLOGIC: Awake, alert, oriented x3 with well-coordinated movements. LABORATORY ASSESSMENT: Troponin of 90.5. Initially it was 1.22. CPK was 275. The patient's hemoglobin is 13.5, white count down to 11.8. Electrolytes are normal. BUN 20, creatinine 1.13. ASSESSMENT: 1. Acute ST-elevated myocardial infarction, post stenting of left anterior descending coronary artery. 2. Ischemic cardiomyopathy with anterior wall hypokinesis and ejection fraction of 30% to 35%. 3. History of essential hypertension. 4. History of hyperlipidemia, on medical therapy. 5. History of hypothyroidism. PLAN: The patient is stable. Continue present medical regimen. Patient's condition was discussed with the porcelain enameling supervisor and also discussed with the family. Further plans as per recommendation of the porcelain enameling supervisor. The patient is going to be moved out of the ICU. The patient was seen in the ICU. He is going to be ambulating today on telemetry. Patient's condition is stable at present. Prognosis guarded. DARCY / [place]BA: [id number] /
[2018-08-17] MEDS: LEVOTHYROXINE 100 MCG TAB PO SCH (05:18)
[2018-08-17] MEDS: LEVOTHYROXINE 75 MCG TAB PO SCH (05:18)
[2018-08-17 06:20] LABS: Calcium 8.9 mg/dL (8.4-10.2); Magnesium 2.1 mg/dL (1.6-2.3); Potassium 4.6 mmol/L (3.5-5.1)
[2018-08-17] MEDS: ASPIRIN 81 MG PO SCH (09:37)
[2018-08-17] MEDS: LOSARTAN 25 MG TAB PO SCH ×2 (09:38→22:20)
[2018-08-17] MEDS: METOPROLOL TARTRATE 50 MG TAB PO SCH ×2 (09:39→22:20)
[2018-08-17] MEDS: SPIRONOLACTONE 25 MG TAB PO SCH (09:43)
[2018-08-17] MEDS: TICAGRELOR 90 MG TAB PO SCH ×2 (09:44→22:20)
--- NOTE | 2018-08-17 16:28 | PN ---
PROGRESS NOTE Mr. Villatoro is a 72-year-old male who presented with an acute anterior myocardial infarction, underwent coronary angiography and stenting of the LAD. He is doing well this morning. Yesterday he had some episodes of ventricular ectopic activity. That has resolved since. He is feeling well. His breathing is stable. He is ambulating without any difficulty. He denies any nausea. He continues to be on aspirin once a day, metoprolol 50 mg twice a day, Brilinta 90 mg twice a day, losartan 25 mg daily, Lipitor 80 mg daily and spironolactone 12.5 mg daily. PHYSICAL EXAMINATION: Blood pressure 140/90 with a heart rate in the 80s. LUNGS: Clear. HEART: Regular rate, rhythm S1, S2. No S3. No rub. ABDOMEN: Soft, nontender. EXTREMITIES: No edema. LAB DATA: BUN and creatinine of 20 and 1.17, potassium 4.6. His echocardiogram images revealed an ejection fraction of about 35%. IMPRESSION: 1. Status post anterior myocardial infarction with stenting of the left anterior descending coronary artery. 2. Ventricular ectopic activity, stable. 3. Moderate mitral regurgitation. 4. Hyperlipidemia. 5. Hypertension. RECOMMENDATIONS: I will increase the dose of losartan to 25 mg twice a day. Continue the rest of his medical regimen. I will review his lab data tomorrow. If he is stable, I would expect he should be able to be discharged home and followed as an outpatient. DARCY / [place]: [id number] /
[2018-08-17] MEDS: ATORVASTATIN 80 MG TAB PO SCH (22:20)
[2018-08-17] MEDS: ZOLPIDEM 5 MG TAB PO PRN (22:20)
--- NOTE | 2018-08-17 23:10 | PN ---
PROGRESS NOTE ATTENDING PHYSICIAN: Dr. Joshua Zaidi. CHIEF COMPLAINT: Re-evaluation. HISTORY OF PRESENT ILLNESS: A 72-year-old gentleman was admitted to the hospital with acute anterior wall myocardial infarction. He has undergone stenting of the LAD. There is evidence of Q- waves in the anterior leads. Echocardiogram did reveal anterior wall hypokinesis. He has an ejection fraction of 30% to 35%. The patient yesterday was up and walking. Nursing noticed that on telemetry had full run of 4 beats of nonsustained ventricular tachycardia. The magnesium was checked and replaced. The patient is actually feeling much better this morning. Denies any chest pain or shortness of breath or orthopnea. She is anxious to get out of the hospital. REVIEW OF SYSTEMS: NEURO: Denies any headaches or dizziness. PSYCH: No anxiety. CARDIAC: No chest pain, angina, palpitation. RESPIRATORY: No shortness of breath, cough, hemoptysis. GI: No nausea, vomiting, abdominal pain, diarrhea, constipation, hematochezia, melena. : No symptoms of dysuria or hematuria. EXTREMITIES: No pain or edema. CONSTITUTIONAL: No fevers or chills. PHYSICAL EXAMINATION: Pleasant gentleman, in no distress. VITAL SIGNS: Temperature 98, pulse 76, respirations 18, blood pressure 133/84, pulse ox 97% on room air. HEENT: Normocephalic. NECK: No JVD. CHEST: Clear to auscultation. CARDIAC: Normal S1, S2 with no gallops or murmurs appreciated. ABDOMEN: Soft. No palpable masses. Bowel sounds normal. No organomegaly. No abdominal bruits. EXTREMITIES: No edema. Good pulses both upper and lower extremities. NEUROLOGIC: Awake, alert, oriented x3 with well-coordinated movements. LABORATORY ASSESSMENT: None new. Normal BNP, electrolytes, BUN, creatinine. Magnesium 2.1%. ASSESSMENT: 1. Status post acute ST elevated myocardial infarction, anterior wall. 2. Ischemic cardiomyopathy. 3. History of hyperlipidemia. 4. History of hypertension. PLAN: Continue present medical regimen. Patient's condition is discussed with the patient. Prognosis guarded. PVCs at 4 beats. In view of this, beta-yassine is being increased up. Spironolactone decreased down to 12.5. The patient was subsequently placed on increased Cozaar by the laborer shellfish processing to 25 b.i.d. The patient's condition is stable. Questions regarding how to improve the EF discussed. Prognosis remains guarded. MMODL / IJN: [id number] /
[2018-08-18] MEDS: LEVOTHYROXINE 100 MCG TAB PO SCH (05:28)
[2018-08-18] MEDS: LEVOTHYROXINE 75 MCG TAB PO SCH (05:28)
[2018-08-18 06:46] LABS: Calcium 9.1 mg/dL (8.4-10.2); Potassium 4.9 mmol/L (3.5-5.1)
[2018-08-18 09:04] VITALS: BP 126/79; PULSE 80; RESP 16; TEMP 96.7
[2018-08-18] MEDS: TICAGRELOR 90 MG TAB PO SCH (09:32)
[2018-08-18] MEDS: METOPROLOL TARTRATE 50 MG TAB PO SCH (09:32)
[2018-08-18] MEDS: ASPIRIN 81 MG PO SCH (09:33)
[2018-08-18] MEDS: SPIRONOLACTONE 25 MG TAB PO SCH (09:33)
[2018-08-18] MEDS: LOSARTAN 25 MG TAB PO SCH (09:35)
--- NOTE | 2018-08-18 10:35 | PN ---
PROGRESS NOTE Mr. Villatoro is a 72-year-old male who presented with an acute anterior myocardial infarction, underwent cardiac catheterization and stenting of the LAD. He had evidence of ischemic cardiomyopathy. He is feeling well this morning. His breathing has been stable. He denies any dizziness or palpitation. He has been ambulating without difficulty. He continues to be on aspirin 81 mg daily, Lipitor 80 mg daily, losartan 25 mg twice a day, metoprolol tartrate 50 mg twice a day, Brilinta 90 mg twice a day, spironolactone 12.5 mg daily. PHYSICAL EXAMINATION: Blood pressure 126/70 with a heart rate in the 80s. LUNGS: Clear. HEART: Regular rate and rhythm, S1, S2. No S3. No rub. ABDOMEN: Soft, nontender. EXTREMITIES: No edema. LAB DATA: Revealed BUN and creatinine 20 and 1.25, potassium 4.9. His echocardiogram performed, revealed ejection fraction of 30% to 35%. IMPRESSION: 1. Status post anterior myocardial infarction with stenting of the LAD. 2. Ischemic cardiomyopathy. 3. Hyperlipidemia. RECOMMENDATION: I had a long discussion with the patient regarding the issue of cardiomyopathy and sudden . I discussed with him the option of LifeVest. Will investigate that, probably obtain one today and probably discharge him to home today and follow on the present medical therapy. Re-evaluate the left ventricular systolic function down the road and depending on his progress, further recommendation would be made. DARCY / COLUMBA: [id number] /
--- NOTE | 2018-08-18 14:09 | P.PN ---
Progress Note - Text Progress Note Date: 08/18/18 This is an addendum to the cardiology progress note dictated earlier today. Patient again was educated regarding the LifeVest up because he had some further questions. He has decided at this time and not to have a LifeVest. He states that he has read information on line and is not convinced that it is of any benefit. He and his both have made the decision not to wear a LifeVest on discharge. DNP note has been reviewed, I agree with a documented findings and plan of care. Patient was seen and examined.
[2018-08-19] MEDS ORDERED: LOSARTAN 50 MG TAB PO SCH (09:00)
--- NOTE | 2018-08-20 13:04 | P.DS ---
Providers Date of admission: 08/15/18 07:29 Expected date of discharge: 08/19/18 Attending physician: David Zaidi Consults: 08/15/18 07:28 Consult Physician Stat Consulting Provider: Jj Renee Consult Reason/Comments: stemi Do you want consulting provider notified?: Already Contacted 08/15/18 08:26 Consult Physician Routine Consulting Provider: [facility] Consult Reason/Comments: Post Interventional patient Do you want consulting provider notified?: Already Contacted Primary care physician: David Zaidi Hospital Course: This 72-year-old gentleman who was admitted to the hospital on 08/15/2018 after presenting to the emergency room with a complaint of pain across the shoulders and radiating down both arms in the inner aspect. The patient had associated significant nausea vomiting, some diaphoresis. There was no palpitations dizziness or shortness of breath associated. Symptoms are about 10 hours duration. When seen in the emergency room does have evidence of elevation of ST segments in the anterior leads however there was also Q waves in the anterior leads. Patient had stable vital signs. He is immediately taken into cardiac catheterization where he is noted to have a lower size left main bifurcating into left circumflex and left anterior descending with no evidence of any obstructive coronary artery disease. Left anterior descending artery was totally occluded primarily with no antegrade flow. The left circumflex was a nondominant vessel giving rise to 2 large obtuse marginal branches with no evidence of obstructive airway disease. The right coronary artery disease is a large dominant vessel bifurcating into PDA and posterolateral segment and branches and there was no evidence of obstructive coronary artery disease in these vessels either.. Left ventriculogram revealed an ejection fraction of 25- 30% with no significant mitral regurgitation. In view of this patient is taken in for a angioplasty and stent placement. Patient had a 4 x 18 mm Xience Lucina stent placed with good results. Postprocedure the patient was in the ICU where he maintained stable hemodynamics. Patient was moved on to the medical floor. He had an episode of 4 beats of nonsustained V. tach with no symptoms and occasional PVCs. Patient' s beta yassine was increased to 50 mg twice a day. An echocardiogram done revealed an ejection fraction of about 30-35%. The anterior wall is hypokinetic. Patient exhibited no symptoms of congestive cardiac failure. Patient was discharged home in a stable condition. He will follow up on the outpatient. Prior to discharge patient's status is discussed with both the and the patient has had all the questions to the satisfaction. All medications were reviewed with him. Activity reviewed with him potential risks post myocardial infarction are reviewed. We will follow that since his troponin at the time of presentation was only 1.3 to that he may still have a significant amount of viable myocardium and expected an improvement in his ejection fraction. Patient had elected not to have a life vest. Final diagnosis to include 1. Acute ST elevated myocardial infarction 2. ischemic cardiomyopathy 3. Hyperlipidemia on medical therapy 4. Essential hypertension controlled 5. History of carcinoma of the thyroid 6. Euthyroid status with medical therapy Patient Condition at Discharge: Serious Plan - Discharge Summary Discharge Rx Participant: Yes New Discharge Prescriptions: New Aspirin 81 mg PO DAILY chew Atorvastatin [Lipitor] 80 mg PO HS #90 tab Metoprolol Tartrate [Lopressor] 50 mg PO BID #180 tab Nitroglycerin Sl Tabs [Nitrostat] 0.4 mg SUBLINGUAL Q5M PRN #25 tab PRN Reason: Chest Pain Spironolactone [Aldactone] 12.5 mg PO DAILY #45 tab Ticagrelor [Brilinta] 90 mg PO BID #180 tab Continue Levothyroxine Sodium [Synthroid] 175 mcg PO DAILY Losartan [Cozaar] 50 mg PO DAILY Discontinued Atorvastatin [Lipitor] 20 mg PO DAILY Ibuprofen [Motrin Ib] 600 mg PO Q6HR PRN PRN Reason: Pain Discharge Medication List Levothyroxine Sodium [Synthroid] 175 mcg PO DAILY 09/07/15 [History] Losartan [Cozaar] 50 mg PO DAILY 08/02/18 [History] Aspirin 81 mg PO DAILY chew 08/18/18 [Rx] Atorvastatin [Lipitor] 80 mg PO HS #90 tab 08/18/18 [Rx] Metoprolol Tartrate [Lopressor] 50 mg PO BID #180 tab 08/18/18 [Rx] Nitroglycerin Sl Tabs [Nitrostat] 0.4 mg SUBLINGUAL Q5M PRN #25 tab 08/18/18 [Rx ] Spironolactone [Aldactone] 12.5 mg PO DAILY #45 tab 08/18/18 [Rx] Ticagrelor [Brilinta] 90 mg PO BID #180 tab 08/18/18 [Rx] Follow up Appointment(s)/Referral(s): David Zaidi MD [Primary Care Provider] - 08/25/18 4:15 pm [facility], [NON-STAFF] - 1-2 Days Jj Renee MD [STAFF PHYSICIAN] - 08/22/18 3:30 pm Patient Instructions/Handouts: Heart Healthy Diet (DC) Discharge Disposition: HOME WITH HOME HEALTH SERVICES
== END 2018-08-18 14:16 | disposition home health service (06) | DRG 247 ==
LOC: EC 07:05 → 2SICU 07:29 → 3SCARD 08-16 20:07
PROVIDERS: ADMIT Internal Medicine; ATTEND Internal Medicine
PROC: B2111ZZ Fluoroscopy of Multiple Coronary Arteries using Low Osmolar Contrast (ICD-10-PCS; 2018-08-15)
PROC: B2151ZZ Fluoroscopy of Left Heart using Low Osmolar Contrast (ICD-10-PCS; 2018-08-15)
PROC: 027034Z Dilation of Coronary Artery, One Artery with Drug-eluting Intraluminal Device, Percutaneous Approach (ICD-10-PCS; principal; 2018-08-15 07:40)
PROC: 4A023N7 Measurement of Cardiac Sampling and Pressure, Left Heart, Percutaneous Approach (ICD-10-PCS; 2018-08-15 07:40)
DX: I21.09 ST elevation (STEMI) myocardial infarction involving other coronary artery of anterior wall (principal); I47.2 Ventricular tachycardia; B02.9 Zoster without complications; I34.0 Nonrheumatic mitral (valve) insufficiency; I10 Essential (primary) hypertension; E78.5 Hyperlipidemia, unspecified; E89.0 Postprocedural hypothyroidism; K57.30 Diverticulosis of large intestine without perforation or abscess without bleeding; K21.9 Gastro-esophageal reflux disease without esophagitis; I25.5 Ischemic cardiomyopathy; I25.10 Atherosclerotic heart disease of native coronary artery without angina pectoris; Z79.890 Hormone replacement therapy; Z79.899 Other long term (current) drug therapy; Z85.850 Personal history of malignant neoplasm of thyroid; Z80.0 Family history of malignant neoplasm of digestive organs; Z80.42 Family history of malignant neoplasm of prostate; Z82.49 Family history of ischemic heart disease and other diseases of the circulatory system; Z53.29 Procedure and treatment not carried out because of patient's decision for other reasons
CPT/HCPCS: 71045; 80048; 80053; 80061; 82550; 82553; 83735; 84132; 84484; 85025; 85347; 85610; 85730; 93306; 93458; 96372; 99285; C1874

== ENCOUNTER → 2018-09-30 | Outpatient (CLI) | payer MEDICARE ==
[2018-09-30 12:01] LABS: Albumin 4.1 g/dL (3.80-4.90); Albumin/Globulin Ratio 2.05 (1.60-3.17); Anion Gap 6.7 mmol/L (4.00-12.00); Calcium 9.4 mg/dL (8.7-10.3); Carbon Dioxide 27.3 mmol/L (21.6-31.8); LDL Cholesterol,Calculated 56.2 mg/dL (0.0-131.0); Potassium 4.9 mmol/L (3.5-5.5); Total Bilirubin 0.8 mg/dL (0.2-1.2); Total Protein 6.1 g/dL (6.2-8.2); VLDL Calculation 16.8 mg/dL (5.00-40.00)
== END | disposition home or self-care (01) ==
LOC: LABWHC1 06:54
PROVIDERS: ATTEND Internal Medicine Interventional Cardiology
DX: E78.2 Mixed hyperlipidemia (principal)
CPT/HCPCS: 36415; 80053; 80061

== ENCOUNTER 2018-10-08 13:41 | Observation (INO) | payer MEDICARE ==
[2018-10-08] MEDS ORDERED: ACETAMINOPHEN TAB 500 MG TAB PO STA (14:18)
--- NOTE | 2018-10-08 14:25 | ED ---
General Adult HPI - General Chief complaint: Fever Stated complaint: Chills Time Seen by Provider: 10/08/18 14:01 Source: patient, RN notes reviewed, old records reviewed Mode of arrival: ambulatory Limitations: no limitations - History of Present Illness Initial comments: 73-year-old male presenting for evaluation of fever and chills. Patient states morning he was outside doing some yard work, began to feel chilled, went inside and was unable to get warm including the use of hot shower and he did blanket. Patient is 6 weeks status post acute HI. He states he's had a mild cough and rhinorrhea which is been persistent since his heart attack and initiation of several medications. Denies dyspnea. Denies chest pain. Denies any abdominal pain. Denies nausea vomiting or diarrhea. Denies rash. Denies dysuria or hematuria. - Related Data Home Medications Medication Instructions Recorded Confirmed Losartan [Cozaar] 50 mg PO DAILY 08/02/18 10/08/18 Levothyroxine Sodium [Synthroid] 175 mcg PO 10/08/18 10/08/18 Metoprolol Tartrate [Lopressor] 25 mg PO BID 10/08/18 10/08/18 Previous Rx's Medication Instructions Recorded Aspirin 81 mg PO DAILY chew 08/18/18 Atorvastatin [Lipitor] 80 mg PO HS #90 tab 08/18/18 Nitroglycerin Sl Tabs [Nitrostat] 0.4 mg SUBLINGUAL Q5M PRN #25 tab 08/18/18 Spironolactone [Aldactone] 12.5 mg PO DAILY #45 tab 08/18/18 Ticagrelor [Brilinta] 90 mg PO BID #180 tab 08/18/18 Allergies Allergy/AdvReac Type Severity Reaction Status Date / Time Penicillins AdvReac Swelling Verified 10/08/18 18:18 Review of Systems ROS Statement: Those systems with pertinent positive or pertinent negative responses have been documented in the HPI. ROS Other: All systems not noted in ROS Statement are negative. Past Medical History Past Medical History: Coronary Artery Disease (CAD), Hyperlipidemia, Hypertension, Myocardial Infarction (HI), Thyroid Disorder Additional Past Medical History / Comment(s): HI 08/15/18, thyroid cancer and schwannoma tumor R side neck with surgeries. History of Any Multi-Drug Resistant Organisms: None Reported Past Surgical History: Heart Catheterization With Stent, Orthopedic Surgery Additional Past Surgical History / Comment(s): thyroidectomy, schwannoma tumor from R cervical area, R ankle fracture with surgical repair-hardware since removed. Past Anesthesia/Blood Transfusion Reactions: Postoperative Nausea & Vomiting (PONV) Date of Last Stent Placement:: 08/15/18 Past Psychological History: No Psychological Hx Reported Smoking Status: Never smoker Past Alcohol Use History: None Reported Past Drug Use History: None Reported - Past Family History Father Family Medical History: Cancer Additional Family Medical History / Comment(s): Father at the age of 79yrs from esophageal cancer. He was a smoker. Mother Family Medical History: No Reported History Additional Family Medical History / Comment(s): Mother was healthy and lived to be 99.5 yrs old. General Exam Limitations: no limitations General appearance: alert, in no apparent distress Head exam: Present: atraumatic, normocephalic Eye exam: Present: normal appearance, PERRL ENT exam: Present: normal exam Neck exam: Present: normal inspection. Absent: tenderness, meningismus Respiratory exam: Present: normal lung sounds bilaterally. Absent: respiratory distress, wheezes, rales, rhonchi Cardiovascular Exam: Present: regular rate, normal rhythm. Absent: rubs GI/Abdominal exam: Present: soft. Absent: distended, tenderness, guarding, rebound Extremities exam: Present: normal inspection, normal capillary refill. Absent: pedal edema, calf tenderness Back exam: Present: normal inspection, full ROM Neurological exam: Present: alert, oriented X3, CN II-XII intact. Absent: motor sensory deficit Psychiatric exam: Present: normal affect, normal mood Skin exam: Present: warm, dry, intact. Absent: cyanosis, diaphoretic Course Vital Signs 10/08/18 10/08/18 10/08/18 13:52 14:45 15:00 Temperature 101.3 F H Pulse Rate 104 H 98 93 Respiratory 18 18 17 Rate Blood Pressure 134/83 138/74 127/75 O2 Sat by Pulse 96 95 Oximetry 10/08/18 10/08/18 10/08/18 15:15 15:30 15:45 Temperature Pulse Rate 93 85 83 Respiratory 18 18 19 Rate Blood Pressure 97/78 127/69 127/66 O2 Sat by Pulse 97 98 Oximetry 10/08/18 10/08/18 10/08/18 16:00 16:15 16:30 Temperature 99.3 F Pulse Rate 79 80 Respiratory 18 18 Rate Blood Pressure 118/67 120/61 104/61 O2 Sat by Pulse 95 97 98 Oximetry 10/08/18 10/08/18 16:45 17:00 Temperature Pulse Rate 93 87 Respiratory Rate Blood Pressure 110/55 108/46 O2 Sat by Pulse 97 97 Oximetry - Reevaluation(s) Reevaluation #1: 10/08/18 17:[address] Reid, he was able to review both EKGs. Recommend 3 t roponins, recommended echo tomorrow morning. EKG Findings - EKG Comments: EKG Findings:: EKG: Normal sinus rhythm, left anterior fascicular block, rate of 99, PA interval 172, QRS duration 94, QTC 431, there is ST segment changes in t he precordial leads, V2 V3, previous EKG was acute HI with ST segment elevation in the precordium. EKG obtained at 1731, normal sinus rhythm, rate of 80, PA interval 180, QRS duration 98, QTC 461, T-wave inversion in the precordial leads, no ST segment elevation unchanged from previous EKG. Medical Decision Making - Medical Decision Making 73-year-old male presenting with fever and chills. Patient denies any significant infectious symptoms, no URI symptoms, no significant cough, no abdominal pain, no chest pain, no dysuria or hematuria, no vomiting or diarrhea. No rash. Workup in the emergency department reveals chest x-ray negative for any acute cardiopulmonary disease, no focal pneumonia. EKG shows some ST segment changes consistent with previous HI. Patient has mild leukocytosis at 12, stable hemoglobin, CBC unremarkable, mild lactic acid at 2.2. Troponin is 0.0-4. Given EKG changes, this level is repeated, 0.036. Minimal troponin elevation. I did discuss his case with cardiology, Dr. Reid, both at the time of presentation and with the elevated troponin and EKG changes. He recommends attempt troponin be trended one more time. He also recommends that this patient receive echo in the morning. No heparin at this time as the patient is currently on Brilinta and aspirin. As discussed with Dr. Martinez, accept admission. Patient will be admitted, cultures pending, repeat troponin pending, admitted to monitored bed, echo will be obtained. - Lab Data Result diagrams: 10/08/18 14:37 10/08/18 14:37 Lab Results 10/08/18 10/08/18 10/08/18 Range/Units 14:37 14:37 14:37 WBC 12.0 H (3.8-10.6) k/uL RBC 5.06 (4.30-5.90) m/uL Hgb 14.8 (13.0-17.5) gm/dL Hct 43.6 (39.0-53.0) % MCV 86.1 (80.0-100.0) fL MCH 29.2 (25.0-35.0) pg MCHC 33.9 (31.0-37.0) g/dL RDW 15.3 (11.5-15.5) % Plt Count 257 (150-450) k/uL Neutrophils % 90 % Lymphocytes % 4 % Monocytes % 4 % Eosinophils % 1 % Basophils % 0 % Neutrophils # 10.8 H (1.3-7.7) k/uL Lymphocytes # 0.4 L (1.0-4.8) k/uL Monocytes # 0.5 (0-1.0) k/uL Eosinophils # 0.2 (0-0.7) k/uL Basophils # 0.0 (0-0.2) k/uL Sodium 140 (137-145) mmol/L Potassium 4.4 (3.5-5.1) mmol/L Chloride 106 (98-107) mmol/L Carbon Dioxide 24 (22-30) mmol/L Anion Gap 10 mmol/L BUN 20 (9-20) mg/dL Creatinine 1.15 (0.66-1.25) mg/dL Est GFR (CKD-EPI)AfAm 74 (>60 ml/min/1.73 sqM) Est GFR (CKD-EPI)NonAf 64 (>60 ml/min/1.73 sqM) Glucose 99 (74-99) mg/dL Lactic Ac Sepsis Rflx Plasma Lactic Acid Reji 2.2 H* (0.7-2.0) mmol/L Calcium 9.6 (8.4-10.2) mg/dL Total Bilirubin 0.9 (0.2-1.3) mg/dL AST 31 (17-59) U/L ALT 48 (21-72) U/L Alkaline Phosphatase 106 (38-126) U/L Troponin I (0.000-0.034) ng/mL Total Protein 6.9 (6.3-8.2) g/dL Albumin 4.1 (3.5-5.0) g/dL Urine Color Urine Appearance (Clear) Urine pH (5.0-8.0) Ur Specific [place] (1.001-1.035) Urine Protein (Negative) Urine Glucose (UA) (Negative) Urine Ketones (Negative) Urine Blood (Negative) Urine Nitrite (Negative) Urine Bilirubin (Negative) Urine Urobilinogen (<2.0) mg/dL Ur Leukocyte Esterase (Negative) Influenza Type A RNA (Not Detectd) Influenza Type B (PCR) (Not Detectd) 10/08/18 10/08/18 10/08/18 Range/Units 14:37 14:55 15:07 WBC (3.8-10.6) k/uL RBC (4.30-5.90) m/uL Hgb (13.0-17.5) gm/dL Hct (39.0-53.0) % MCV (80.0-100.0) fL MCH (25.0-35.0) pg MCHC (31.0-37.0) g/dL RDW (11.5-15.5) % Plt Count (150-450) k/uL Neutrophils % % Lymphocytes % % Monocytes % % Eosinophils % % Basophils % % Neutrophils # (1.3-7.7) k/uL Lymphocytes # (1.0-4.8) k/uL Monocytes # (0-1.0) k/uL Eosinophils # (0-0.7) k/uL Basophils # (0-0.2) k/uL Sodium (137-145) mmol/L Potassium (3.5-5.1) mmol/L Chloride (98-107) mmol/L Carbon Dioxide (22-30) mmol/L Anion Gap mmol/L BUN (9-20) mg/dL Creatinine (0.66-1.25) mg/dL Est GFR (CKD-EPI)AfAm (>60 ml/min/1.73 sqM) Est GFR (CKD-EPI)NonAf (>60 ml/min/1.73 sqM) Glucose (74-99) mg/dL Lactic Ac Sepsis Rflx Y Plasma Lactic Acid Reji (0.7-2.0) mmol/L Calcium (8.4-10.2) mg/dL Total Bilirubin (0.2-1.3) mg/dL AST (17-59) U/L ALT (21-72) U/L Alkaline Phosphatase (38-126) U/L Troponin I 0.024 (0.000-0.034) ng/mL Total Protein (6.3-8.2) g/dL Albumin (3.5-5.0) g/dL Urine Color Urine Appearance (Clear) Urine pH (5.0-8.0) Ur Specific [place] (1.001-1.035) Urine Protein (Negative) Urine Glucose (UA) (Negative) Urine Ketones (Negative) Urine Blood (Negative) Urine Nitrite (Negative) Urine Bilirubin (Negative) Urine Urobilinogen (<2.0) mg/dL Ur Leukocyte Esterase (Negative) Influenza Type A RNA Not Detected (Not Detectd) Influenza Type B (PCR) Not Detected (Not Detectd) 10/08/18 10/08/18 10/08/18 Range/Units 15:35 17:50 18:20 WBC (3.8-10.6) k/uL RBC (4.30-5.90) m/uL Hgb (13.0-17.5) gm/dL Hct (39.0-53.0) % MCV (80.0-100.0) fL MCH (25.0-35.0) pg MCHC (31.0-37.0) g/dL RDW (11.5-15.5) % Plt Count (150-450) k/uL Neutrophils % % Lymphocytes % % Monocytes % % Eosinophils % % Basophils % % Neutrophils # (1.3-7.7) k/uL Lymphocytes # (1.0-4.8) k/uL Monocytes # (0-1.0) k/uL Eosinophils # (0-0.7) k/uL Basophils # (0-0.2) k/uL Sodium (137-145) mmol/L Potassium (3.5-5.1) mmol/L Chloride (98-107) mmol/L Carbon Dioxide (22-30) mmol/L Anion Gap mmol/L BUN (9-20) mg/dL Creatinine (0.66-1.25) mg/dL Est GFR (CKD-EPI)AfAm (>60 ml/min/1.73 sqM) Est GFR (CKD-EPI)NonAf (>60 ml/min/1.73 sqM) Glucose (74-99) mg/dL Lactic Ac Sepsis Rflx Plasma Lactic Acid Reji 1.5 (0.7-2.0) mmol/L Calcium (8.4-10.2) mg/dL Total Bilirubin (0.2-1.3) mg/dL AST (17-59) U/L ALT (21-72) U/L Alkaline Phosphatase (38-126) U/L Troponin I 0.035 H* (0.000-0.034) ng/mL Total Protein (6.3-8.2) g/dL Albumin (3.5-5.0) g/dL Urine Color Yellow Urine Appearance Clear (Clear) Urine pH 5.5 (5.0-8.0) Ur Specific [place] 1.027 (1.001-1.035) Urine Protein Negative (Negative) Urine Glucose (UA) Negative (Negative) Urine Ketones Trace H (Negative) Urine Blood Negative (Negative) Urine Nitrite Negative (Negative) Urine Bilirubin Negative (Negative) Urine Urobilinogen 2.0 (<2.0) mg/dL Ur Leukocyte Esterase Negative (Negative) Influenza Type A RNA (Not Detectd) Influenza Type B (PCR) (Not Detectd) Disposition Clinical Impression: Fever, Elevated troponin Disposition: ADMITTED IP TO THIS HOSP Condition: Stable Is patient prescribed a controlled substance at d/c from ED?: No Referrals: David Zaidi MD [Primary Care Provider] - 1-2 days Decision to Admit Reason: Admit from EC Decision Date: 10/08/18 Decision Time: 17:10
[2018-10-08 14:53] LABS: Basophils % (A) 0 %; Eosinophils # (A) 0.2 k/uL (0-0.7); Eosinophils % (A) 1 %; HCT 43.6 % (39.0-53.0); HGB 14.8 gm/dL (13.0-17.5); Lymphocytes # (A) 0.4 k/uL (1.0-4.8); Lymphocytes % (A) 4 %; MCH 29.2 pg (25.0-35.0); MCHC 33.9 g/dL (31.0-37.0); MCV 86.1 fL (80.0-100.0); Mean Platelet Volume 9.2; Monocytes # (A) 0.5 k/uL (0-1.0); Monocytes % (A) 4 %; Neutrophils # (A) 10.8 k/uL (1.3-7.7); Neutrophils % (A) 90 %; Platelet Count 257 k/uL (150-450); RBC 5.06 m/uL (4.30-5.90); RDW 15.3 % (11.5-15.5)
[2018-10-08 15:05] LABS: Albumin 4.1 g/dL (3.5-5.0); Calcium 9.6 mg/dL (8.4-10.2); Potassium 4.4 mmol/L (3.5-5.1); Total Bilirubin 0.9 mg/dL (0.2-1.3); Total Protein 6.9 g/dL (6.3-8.2)
[2018-10-08] MEDS ORDERED: SODIUM CHLORIDE 0.9% 500 ML 500 ML IV ONE (15:13)
[2018-10-08 15:43] LABS: Appearance,Urine Clear (Clear); Bilirubin,Urine Negative (Negative); Blood,Urine Negative (Negative); Color,Urine Yellow; Glucose,Urine (UA) Negative (Negative); Ketones,Urine Trace (Negative); Leukocyte Esterase,Urine Negative (Negative); Nitrite,Urine Negative (Negative); PH, Urine 5.5 (5.0-8.0); Protein,Urine Negative (Negative); Specific Gravity,Urine 1.027 (1.001-1.035)
--- NOTE | 2018-10-08 16:39 | XR ---
EXAMINATION TYPE: XR chest 2V DATE OF EXAM: 10/08/2018 COMPARISON: 08/15/2018 INDICATION: Fever, recent heart attack TECHNIQUE: Frontal and lateral views of the chest are obtained. FINDINGS: The heart size is normal. The pulmonary vasculature is normal. The lungs are clear. IMPRESSION: 1. No acute pulmonary process.
[2018-10-08] MEDS ORDERED: NALOXONE 0.4 MG/ML 1 ML VIAL IV PRN (16:51)
[2018-10-08] MEDS ORDERED: ACETAMINOPHEN TAB 325 MG TAB PO PRN (16:51)
[2018-10-08] MEDS ORDERED: NITROGLYCERIN SL TABS 0.4 MG TAB SUBLINGUAL PRN (17:03)
[2018-10-08] MEDS: SODIUM CHLORIDE 0.9% 1,000 ML IV SCH (17:06)
[2018-10-08] MEDS ORDERED: HEPARIN SODIUM,PORCINE 5,000 UNIT/ML 1 ML VIAL IV PRN (21:38)
[2018-10-08] MEDS: METOPROLOL TARTRATE 50 MG TAB PO SCH (23:15)
[2018-10-08] MEDS: TICAGRELOR 90 MG TAB PO SCH (23:15)
[2018-10-08] MEDS: ATORVASTATIN 80 MG TAB PO SCH (23:15)
[2018-10-08] MEDS: HEPARIN SOD,PORK IN 0.45% NACL 25,000 UNIT in 0.45% NACL 1 250ML.BAG IV SCH (23:25)
--- NOTE | 2018-10-08 23:53 | HP ---
HISTORY AND PHYSICAL Mr. Villatoro is a 73-year-old gentleman. CHIEF COMPLAINT: Complaint to the emergency room when he presented is having chills and fever at home. HISTORY OF PRESENT ILLNESS: The patient today was out doing a little yard work. When he returned back in his house, he felt warm and developed chills and severe weakness, was found to have a temperature up to 101.3. He has not had any specific complaints. REVIEW OF SYSTEMS: Essentially unremarkable. PAST MEDICAL HISTORY: Is positive for a coronary artery disease for which he has had a recent myocardial infarction back in August for which she had heart catheterization and angioplasty and stent placement. The patient had occlusion of the proximal LAD, almost pretty much total occlusion and underwent reduction of stenosis down to 0% and this was done August [address] Sanz from Cardiology. Other past medical history is positive for carcinoma of the thyroid with resection and no evidence of recurrence. He has a history of BPH, hyperlipidemia, gastroesophageal reflux, diverticulosis of the colon and previous herpes zoster infection in the past. PREVIOUS SURGERIES: Include the total thyroidectomy and an apparent resection of a C3 schwannoma. REVIEW OF SYSTEMS: As mentioned, was negative for any sore throat. There is no sinus congestion. He has had some slight drainage. No chest pain. No unusual cough or phlegm production. No nausea, vomiting. No urinary or bowel symptoms. He does have a history of a right renal stone that he passed previously. 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 He does live locally with his spouse who was present during the examination. There is no history of smoking and only occasional alcohol usage. FAMILY HISTORY: From old record. Father at age 79 with esophageal cancer. Mother at 99 from valvular heart disease. He has a brother, 75 with a bladder carcinoma and prostate cancer. Another brother who is 61 and a daughter 40 in good health and daughter 37 in good health. PHYSICAL EXAMINATION: He did have a temperature of a 100.3, pulse of 104, respirations 18, blood pressure 134/83, and O2 saturation was 96. No unusual skin rashes or skin breakdown. Head is atraumatic. Extraocular movements are intact. NECK: Supple. No thyromegaly, adenopathy or bruits detected. As mentioned, patient did have a thyroid resection. LUNGS: Clear to auscultation. HEART: Regular without murmurs or rubs appreciated. There is no chest wall tenderness. ABDOMEN: Soft and nontender without rebound, guarding, or masses. No organomegaly. Rectal and genital exam is deferred. Extremities revealed no edema. Neurologically, he is alert and oriented without focal deficits. LABORATORY TESTING: Showed a white count of 12, with a hemoglobin 14.8 and a platelet count of 257. He did have 10.8 neutrophils. Electrolytes were normal. BUN of 20 with creatinine 1.15, giving him a GFR of 64. Initial plasma lactic acid level was 2.2, and initial troponin was 0.024, but did rise on 2nd determination of 0.035. Other liver function tests were unremarkable. Urine reveals some trace ketones. Leukocyte esterase was negative. Influenza A and B was negative. A repeat plasma lactic acid level decreased down to 1.5. The patient's chest x-ray showed no acute process and his EKG showed a normal sinus rhythm with poor R-wave progression anteriorly, left anterior fascicular block, but no definite acute ischemic changes were noted. IMPRESSION: At this point is elevated fever. No definite source at this time. No definite pneumonia or urinary tract infection to be seen. He does have elevated troponins, which is likely related to his initial chills and fevers. He does have a history of coronary artery disease as stated above with stenting approximately 6 to 8 weeks previous, stenting of the LAD and myocardial infarction anteriorly at that time. 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 History of BPH and apparent nephrolithiasis, hyperlipidemia, gastroesophageal reflux, diverticulosis, and previous herpes zoster infection and a history of C3 schwannoma resected apparently. At this point we will continue the patient's home medications. IV hydration will be given. Consultation because of elevated troponins with Cardiology and echo Doppler has been ordered. Blood cultures have been obtained. Sedimentation rate has been ordered. We will also hold antibiotics at this point, pending further clinical response and results of above. MMODL / IJN: [id number] / RICHARD
[2018-10-09 02:53] VITALS: BMI 26.3
[2018-10-09 04:11] LABS: Basophils % (A) 0 %; Eosinophils # (A) 0.1 k/uL (0-0.7); Eosinophils % (A) 0 %; HCT 39.2 % (39.0-53.0); HGB 13.4 gm/dL (13.0-17.5); Lymphocytes # (A) 1.4 k/uL (1.0-4.8); Lymphocytes % (A) 12 %; MCH 28.7 pg (25.0-35.0); MCHC 34.1 g/dL (31.0-37.0); MCV 84.2 fL (80.0-100.0); Mean Platelet Volume 9.4; Monocytes # (A) 0.9 k/uL (0-1.0); Monocytes % (A) 7 %; Neutrophils # (A) 9.8 k/uL (1.3-7.7); Neutrophils % (A) 80 %; Platelet Count 214 k/uL (150-450); RBC 4.66 m/uL (4.30-5.90); RDW 15.5 % (11.5-15.5); WBC 12.3 k/uL (3.8-10.6)
[2018-10-09] MEDS: LEVOTHYROXINE 88 MCG TAB PO SCH ×2 (06:26→06:29)
[2018-10-09] MEDS: TICAGRELOR 90 MG TAB PO SCH ×2 (08:30→18:08)
[2018-10-09] MEDS: METOPROLOL TARTRATE 50 MG TAB PO SCH (08:30)
[2018-10-09] MEDS ORDERED: ASPIRIN 81 MG PO SCH (09:00)
--- NOTE | 2018-10-09 10:38 | P.PN ---
Subjective Progress Note Date: 10/09/18 IMPRESSION / ASSESSMENT: Fever of unclear etiology Elevated troponins and nonspecific ST changes History of coronary artery disease with recent [place] and stenting in August Hyperlipidemia History of papillary carcinoma status post thyroid resection Benign prostatic hypertrophy and nephrolithiasis PLAN: Continue heparin drip and discontinue at 5 AM on Wednesday morning Continue aspirin 81 mg daily, Proventil 90 mg twice daily, Lipitor 80 mg at bedtime, Lopressor 50 mg twice daily HPI Patient denies having any chest pain through the night, shortness of breath, lightheadedness or dizziness. He has had no further fever or chills. Repeat EKG reveals subtle ST changes. Sed rate is 3 ruling out pericarditis. Echocardiogram has been ordered for this morning. Troponins have been 0.024, 0.035, 0.032. Blood culture is in progress. EXAMINATION: Gen: This is a 73-year-old male. He is resting bed appears to be comfortable and in no acute distress. Vital signs, afebrile, heart rate 69 101, pulse ox 94% on room air, blood pressure 138/80. HEENT: Head is atraumatic, normocephalic. Pupils equal, round. Sclerae is anicteric. NECK: Supple. No JVD. No lymphadenopathy. No thyromegaly. LUNGS: Clear to auscultation. No wheezes or rhonchi. No intercostal retractions. HEART: Regular rate and rhythm. No murmur. ABDOMEN: Soft. Bowel sounds are present. No masses. No tenderness. EXTREMITIES: No pedal edema. No calf tenderness. NEUROLOGICAL: Patient is awake, alert and oriented x3. Cranial nerves 2 through 12 are grossly intact. Nurse practitioner note has been reviewed, I agree with documented findings and plan of care. Patient was seen and examined. Objective - Vital Signs Vital signs: Vital Signs Temp 99.9 F H 10/09/18 02:18 Pulse 98 10/09/18 02:18 Resp 16 10/09/18 04:00 BP 138/80 10/09/18 02:18 Pulse Ox 94 L 10/09/18 02:18 Intake & Output 10/08/18 10/09/18 10/09/18 18:59 06:59 18:59 Intake Total 700 Balance 700 Weight 81.647 kg Intake: Amount of Fluid Infused ( 700 ml) Other: # Voids 1 - Labs CBC & Chem 7: 10/09/18 03:37 10/08/18 14:37 Labs: Abnormal Lab Results - Last 24 Hours (Table) 10/08/18 10/08/18 10/08/18 Range/Units 14:37 14:37 15:35 WBC 12.0 H (3.8-10.6) k/uL Neutrophils # 10.8 H (1.3-7.7) k/uL Lymphocytes # 0.4 L (1.0-4.8) k/uL APTT (22.0-30.0) sec Plasma Lactic Acid Reji 2.2 H* (0.7-2.0) mmol/L Troponin I (0.000-0.034) ng/mL Urine Ketones Trace H (Negative) 10/08/18 10/09/18 10/09/18 Range/Units 17:50 03:37 03:37 WBC 12.3 H (3.8-10.6) k/uL Neutrophils # 9.8 H (1.3-7.7) k/uL Lymphocytes # (1.0-4.8) k/uL APTT 54.8 H (22.0-30.0) sec Plasma Lactic Acid Reji (0.7-2.0) mmol/L Troponin I 0.035 H* (0.000-0.034) ng/mL Urine Ketones (Negative)
[2018-10-09] MEDS ORDERED: NON-FORMULARY DRUG (Levothyroxine Sodium [Synthroid] 175 MCG) PO SCH (11:15)
[2018-10-09] MEDS ORDERED: LOSARTAN 50 MG TAB PO SCH (11:15)
[2018-10-09] MEDS: SPIRONOLACTONE 25 MG TAB PO SCH (12:34)
--- NOTE | 2018-10-09 12:51 | PN ---
PROGRESS NOTE ATTENDING PHYSICIAN: Dr. Joshua Zaidi. CHIEF COMPLAINT: Re-evaluation. HISTORY OF PRESENT ILLNESS: This is a 73-year-old gentleman who was admitted to the hospital with a fever. The patient has EKG changes which are more chronic appearing changes. The patient had a borderline troponin of 0.034. Subsequent one is 0.032. He had episode of no chest pain. The patient feels well today and denies any fever, chills. He has had no headache, dizziness. No cough. No urinary symptoms. No urinary symptoms. History of a previous kidney stone. However, no symptoms of any pain. The patient has had a myocardial infarction not too long ago. His EKG reveals anterior wall NH changes. Patient white count [id number], which is persistent. Lactic acid was 2.2. His initial troponin was 0.024, subsequent was 0.035 with subsequent one 0.032 with a lactic acid down 1.5. Urine had trace ketones. The patient denies any other symptoms today. REVIEW OF SYSTEMS: Neuro: Denies any headaches, dizziness. Psych: No anxiety or depression. Cardiac: No chest pain, angina or palpitations. Respiratory: No shortness of breath, cough, hemoptysis. GI no nausea, vomiting, abdominal pain, diarrhea. Has constipation. : No symptoms of dysuria, hematuria. Extremities: No pain or edema. CONSTITUTIONAL: No fever or chills. PHYSICAL EXAMINATION: Pleasant gentleman in no distress. VITAL SIGNS: Revealed he has had no further temperature. Temperature I took was 98.4. Temperature today was 98.4 this morning. Pulse 70, respirations 16, blood pressure 118/77, pulse ox of 94% on room air. HEENT: Normocephalic. Neck no JVD. CHEST: Clear to auscultation and percussion. Cardiac normal S1, S2 with no gallops, murmurs, rubs appreciated. ABDOMEN: Soft. No palpable masses. Bowel sounds normal. No organomegaly. No abdominal bruits. Extremities reveal no edema. No tenderness. No evidence of cellulitis. NEUROLOGIC: Awake, alert, oriented x3 with well-coordinated movements. LABORATORY ASSESSMENT: White count 12.3, hemoglobin 13.4, platelets 214. ASSESSMENT: 1. Fever, source probably viral. 2. Recent myocardial infarction. 3. One borderline troponin felt to be demand supply related. PLAN: Continue present medical regimen. I did discuss with the food checker about whether it is really necessity to continue heparin. He feels that we will continue the heparin until tomorrow morning until he was seen by his other food checker, Dr. Renee. The patient's condition discussed with the patient and family. DARCY / COLUMBA: [id number] /
--- NOTE | 2018-10-09 13:18 | P.CRDCN ---
History of Present Illness Consult date: 10/09/18 History of present illness: IMPRESSION / ASSESSMENT: Fever of unclear etiology Elevated troponins and nonspecific ST changes History of coronary artery disease with recent SC and stenting in August Hyperlipidemia History of papillary carcinoma status post thyroid resection Benign prostatic hypertrophy and nephrolithiasis PLAN: Continue heparin drip and discontinue at 5 AM on Wednesday morning Continue aspirin 81 mg daily, Brilinta 90 mg twice daily, Lipitor 80 mg at bedtime, Lopressor 50 mg twice daily HPI This is a 73-year-old male patient who was working in his yard and subsequently developed she feels, weakness and was found to have an elevated t emperature. He came into [facility] emergency center for evaluation. No source of his fever has been determined. Patient denies having any chest pain through the night, shortness of breath, lightheadedness or dizziness. He has had no further fever or chills. Repeat EKG reveals subtle ST changes. Sed rate is 3 ruling out pericarditis. Echocardiogram has been ordered for this morning. Troponins have been 0.024, 0.035, 0.032. Blood culture is in progress. ROS: Reports fever chills or rigors, no cough, phlegm or expectoration, no nausea, vomiting or diarrhea, no hematuria, dysuria, no musculoskeletal complaints, no strokes or seizures, no skin lesions. EXAMINATION: Gen: This is a 73-year-old male. He is resting bed appears to be comfortable and in no acute distress. Vital signs, afebrile, heart rate 69 101, pulse ox 94% on room air, blood pressu re 138/80. HEENT: Head is atraumatic, normocephalic. Pupils equal, round. Sclerae is anicteric. NECK: Supple. No JVD. No lymphadenopathy. No thyromegaly. LUNGS: Clear to auscultation. No wheezes or rhonchi. No intercostal retractions. HEART: Regular rate and rhythm. No murmur. ABDOMEN: Soft. Bowel sounds are present. No masses. No tenderness. EXTREMITIES: No pedal edema. No calf tenderness. NEUROLOGICAL: Patient is awake, alert and oriented x3. Cranial nerves 2 through 12 are grossly intact. Nurse practitioner note has been reviewed, I agree with documented findings and plan of care. Patient was seen and examined. Past Medical History Past Medical History: Coronary Artery Disease (CAD), Hyperlipidemia, Hypertension, Myocardial Infarction (SC), Thyroid Disorder Additional Past Medical History / Comment(s): SC 08/15/18 stent to LAD, thyroid cancer and schwannoma tumor R side neck with surgeries. Last Myocardial Infarction Date:: 08/15/18 History of Any Multi-Drug Resistant Organisms: None Reported Past Surgical History: Heart Catheterization With Stent, Orthopedic Surgery Additional Past Surgical History / Comment(s): thyroidectomy, schwannoma tumor from R cervical area, R ankle fracture with surgical repair-hardware since removed. Past Anesthesia/Blood Transfusion Reactions: Postoperative Nausea & Vomiting (PONV) Date of Last Stent Placement:: 08/15/18 Past Psychological History: No Psychological Hx Reported Additional Psychological History / Comment(s): Pt resides with his spouse. He is independent. Smoking Status: Never smoker Past Alcohol Use History: None Reported Past Drug Use History: None Reported - Past Family History Father Family Medical History: Cancer Additional Family Medical History / Comment(s): Father at the age of 79yrs from esophageal cancer. He was a smoker. Mother Family Medical History: No Reported History Additional Family Medical History / Comment(s): Mother was healthy and lived to be 99.5 yrs old. Medications and Allergies Home Medications Medication Instructions Recorded Confirmed Type Losartan [Cozaar] 50 mg PO DAILY 08/02/18 10/08/18 History Aspirin 81 mg PO DAILY chew 08/18/18 10/08/18 Rx Atorvastatin [Lipitor] 80 mg PO HS #90 tab 08/18/18 10/08/18 Rx Nitroglycerin Sl Tabs [Nitrostat] 0.4 mg SUBLINGUAL Q5M PRN #25 tab 08/18/18 10/08/18 Rx Spironolactone [Aldactone] 12.5 mg PO DAILY #45 tab 08/18/18 10/08/18 Rx Ticagrelor [Brilinta] 90 mg PO BID #180 tab 08/18/18 10/08/18 Rx Levothyroxine Sodium [Synthroid] 175 mcg PO 10/08/18 10/08/18 History Metoprolol Tartrate [Lopressor] 25 mg PO BID 10/08/18 10/08/18 History Allergies Allergy/AdvReac Type Severity Reaction Status Date / Time Penicillins AdvReac Swelling Verified 10/08/18 18:18 Physical Exam Vitals: Vital Signs Temp Pulse Pulse Resp BP BP Pulse Ox 10/09/18 12:00 98.3 F 70 18 103/70 96 10/09/18 11:39 78 16 10/09/18 08:00 98.4 F 78 16 118/77 94 L 10/09/18 04:00 16 10/09/18 02:18 99.9 F H 98 20 138/80 94 L 10/09/18 02:12 97.0 F L 101 H 18 139/85 94 L 10/08/18 21:54 98.9 F 69 20 111/79 98 10/08/18 17:00 87 108/46 97 10/08/18 16:45 93 110/55 97 10/08/18 16:30 99.3 F 104/61 98 10/08/18 16:15 80 18 120/61 97 10/08/18 16:00 79 18 118/67 95 10/08/18 15:45 83 19 127/66 98 10/08/18 15:30 85 18 127/69 97 10/08/18 15:15 93 18 97/78 10/08/18 15:00 93 17 127/75 95 10/08/18 14:45 98 18 138/74 10/08/18 13:52 101.3 F H 104 H 18 134/83 96 Intake and Output 10/08/18 10/09/18 10/09/18 22:59 06:59 14:59 Intake Total 700 Balance 700 Intake: Amount of Fluid Infused ( 700 ml) Other: Voiding Method Toilet # Voids 1 Results 10/09/18 03:37 10/08/18 14:37 Cardiac Enzymes 10/08/18 10/08/18 10/08/18 Range/Units 14:37 14:37 17:50 AST 31 (17-59) U/L Troponin I 0.024 0.035 H* (0.000-0.034) ng/mL 10/08/18 Range/Units 21:50 AST (17-59) U/L Troponin I 0.032 (0.000-0.034) ng/mL Coagulation 10/09/18 Range/Units 03:37 APTT 54.8 H (22.0-30.0) sec CBC 10/08/18 10/09/18 Range/Units 14:37 03:37 WBC 12.0 H 12.3 H (3.8-10.6) k/uL RBC 5.06 4.66 (4.30-5.90) m/uL Hgb 14.8 13.4 (13.0-17.5) gm/dL Hct 43.6 39.2 (39.0-53.0) % Plt Count 257 214 (150-450) k/uL Comprehensive Metabolic Panel 10/08/18 Range/Units 14:37 Sodium 140 (137-145) mmol/L Potassium 4.4 (3.5-5.1) mmol/L Chloride 106 (98-107) mmol/L Carbon Dioxide 24 (22-30) mmol/L BUN 20 (9-20) mg/dL Creatinine 1.15 (0.66-1.25) mg/dL Glucose 99 (74-99) mg/dL Calcium 9.6 (8.4-10.2) mg/dL AST 31 (17-59) U/L ALT 48 (21-72) U/L Alkaline Phosphatase 106 (38-126) U/L Total Protein 6.9 (6.3-8.2) g/dL Albumin 4.1 (3.5-5.0) g/dL Current Medications Generic Name Dose Route Start Last Admin Trade Name Freq PRN Reason Stop Dose Admin Acetaminophen 650 mg 10/08/18 16:51 Tylenol Tab PO Q6HR PRN Mild Pain or Fever > 100.5 Aspirin 81 mg 10/09/18 09:00 10/09/18 08:32 Aspirin PO 81 mg DAILY CE Administration Atorvastatin Calcium 80 mg 10/08/18 21:00 10/08/18 23:15 Lipitor PO Not Given HS CE Heparin Sodium (Porcine) 0 unit 10/08/18 21:38 10/08/18 23:21 Heparin IV 4,000 unit PER PROTOCOL PRN Administration Low PTT Protocol Sodium Chloride 1,000 mls @ 20 mls/hr 10/08/18 17:00 10/08/18 17:06 Saline 0.9% IV 20 mls/hr .Q24H CE Administration Heparin Sodium/Sodium Chloride 250 mls @ 9.798 mls/hr 10/08/18 21:45 10/08/18 23:25 25,000 unit/ Sodium Chloride IV 10/10/18 05:00 12 units/kg/hr .Q24H CE 9.798 mls/hr Administration Protocol 12 UNITS/KG/HR Levothyroxine Sodium 176 mcg 10/09/18 06:30 10/09/18 06:29 Synthroid PO Not Given 0630 [facility] Losartan Potassium 50 mg 10/09/18 11:15 10/09/18 12:35 Cozaar PO Not Given DAILY [facility] Metoprolol Tartrate 25 mg 10/09/18 21:00 Lopressor PO BID [facility] Naloxone HCl 0.2 mg 10/08/18 16:51 Narcan IV Q2M PRN Opioid Reversal Nitroglycerin 0.4 mg 10/08/18 17:03 Nitrostat SUBLINGUAL Q5M PRN Chest Pain Spironolactone 12.5 mg 10/09/18 11:15 10/09/18 12:34 Aldactone PO 12.5 mg DAILY [facility] Administration Ticagrelor 90 mg 10/08/18 21:00 10/09/18 08:30 Brilinta PO 90 mg BID [facility] Administration Zolpidem Tartrate 5 mg 10/09/18 21:00 Ambien PO HS [facility] Intake and Output 10/08/18 10/09/18 10/09/18 22:59 06:59 14:59 Intake Total 700 Balance 700 Intake: Amount of Fluid Infused ( 700 ml) Other: Voiding Method Toilet # Voids 1 10/09/18 03:37 10/08/18 14:37
--- NOTE | 2018-10-09 14:25 | ECHOF ---
Referral Reason:elevated trops MEASUREMENTS -------- HEIGHT: 177.8 cm WEIGHT: 81.7 kg BP: 139/85 IVSd: 1.4 cm (0.6 - 1.1) LVIDd: 4.6 cm (3.9 - 5.3) LVPWd: 1.4 cm (0.6 - 1.1) IVSs: 1.8 cm LVIDs: 3.5 cm LVPWs: 1.8 cm LA Diam: 3.9 cm (2.7 - 3.8) RVIDd: 3.6 cm (< 3.3) LAESV Index (A-L): 29.94 ml/m Ao Diam: 3.3 cm (2.0 - 3.7) AV Cusp: 2.2 cm (1.5 - 2.6) EPSS: 1.1 cm MV E Pa: 0.80 m/s MV DecT: 194 ms MV A Pa: 1.03 m/s MV E/A Ratio: 0.78 AV maxP.36 mmHg AV meanP.53 mmHg RAP: 5.00 mmHg RVSP: 36.41 mmHg MV EF SLOPE: 37.61 mm/s (70 - 150) MV EXCURSION: 9.02 mm (> 18.000) FINDINGS -------- Sinus rhythm. This was a technically good study. The left ventricular size is normal. There is moderate concentric left ventricular hypertrophy. O verall left ventricular systolic function is moderately impaired with, an EF between 35 - 40 %. Api paola anterior LV wall motion is hypokinetic. Apical lateral LV wall motion is hypokinetic. Apica l inferior LV wall motion is hypokinetic. Apical septum LV wall motion is hypokinetic. LARGE API PAOLA ANEURYSM, PROX. LV CONTRACTS WELL, DISTAL HALF OF LV IS ANEURYSMAL The right ventricle is mildly enlarged. LA is midly dilated 29-33ml/m2. The right atrium is normal in size. The aortic valve is trileaflet and appears structurally normal. Mild mitral regurgitation is present. Mild tricuspid regurgitation present. There is mild pulmonary hypertension. The right ventricular systolic pressure, as measured by Doppler, is 36.41mmHg. Trace/mild (physiologic) pulmonic regurgitation. The aortic root size is normal. IVC Not well visulized. There is no pericardial effusion. CONCLUSIONS -------- 1. Sinus rhythm. 2. This was a technically good study. 3. The left ventricular size is normal. 4. There is moderate concentric left ventricular hypertrophy. 5. Apical anterior LV wall motion is hypokinetic. 6. Apical lateral LV wall motion is hypokinetic. 7. Apical inferior LV wall motion is hypokinetic. 8. Apical septum LV wall motion is hypokinetic. 9. The right ventricle is mildly enlarged. 10. LA is midly dilated 29-33ml/m2. 11. The right atrium is normal in size. 12. The aortic valve is trileaflet and appears structurally normal. 13. Mild mitral regurgitation is present. 14. Mild tricuspid regurgitation present. 15. There is mild pulmonary hypertension. 16. The right ventricular systolic pressure, as measured by Doppler, is 36.41mmHg. 17. Trace/mild (physiologic) pulmonic regurgitation. 18. The aortic root size is normal. 19. IVC Not well visulized. 20. There is no pericardial effusion. VENDING MACHINE ASSEMBLER: Martha aJne RDCS
[2018-10-09] MEDS: METOPROLOL TARTRATE 25 MG TAB PO SCH (18:08)
[2018-10-09] MEDS: ATORVASTATIN 80 MG TAB PO SCH (20:05)
[2018-10-09] MEDS ORDERED: ZOLPIDEM 5 MG TAB PO SCH (21:00)
[2018-10-10] MEDS: SODIUM CHLORIDE 0.9% 1,000 ML IV SCH (01:07)
[2018-10-10 04:48] VITALS: RESP 17
[2018-10-10] MEDS: LEVOTHYROXINE 88 MCG TAB PO SCH (05:16)
[2018-10-10] MEDS: HEPARIN SOD,PORK IN 0.45% NACL 25,000 UNIT in 0.45% NACL 1 250ML.BAG IV SCH (05:17)
[2018-10-10 06:09] VITALS: BP 119/80; PULSE 63; TEMP 97.7
[2018-10-10 06:28] LABS: Basophils % (A) 1 %; Eosinophils # (A) 0.3 k/uL (0-0.7); Eosinophils % (A) 4 %; HCT 44.3 % (39.0-53.0); HGB 14.4 gm/dL (13.0-17.5); Lymphocytes # (A) 1.7 k/uL (1.0-4.8); Lymphocytes % (A) 25 %; MCH 29.1 pg (25.0-35.0); MCHC 32.5 g/dL (31.0-37.0); Mean Platelet Volume 6.5; Monocytes # (A) 0.7 k/uL (0-1.0); Monocytes % (A) 10 %; Neutrophils % (A) 58 %; Platelet Count 216 k/uL (150-450); RBC 4.95 m/uL (4.30-5.90); WBC 6.8 k/uL (3.8-10.6)
[2018-10-10 06:32] LABS: MCV 89.6 fL (80.0-100.0)
[2018-10-10] MEDS: SPIRONOLACTONE 25 MG TAB PO SCH (06:44)
[2018-10-10] MEDS: TICAGRELOR 90 MG TAB PO SCH (06:44)
[2018-10-10] MEDS: METOPROLOL TARTRATE 25 MG TAB PO SCH (06:44)
--- NOTE | 2018-10-10 19:02 | P.PN ---
Subjective Patient is doing well. Completely asymptomatic from a cardiac standpoint. 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 Very borderline troponins completely asymptomatic I discussed this with Dr. Zaidi. At last 2 monitor the patient for 24 hours yesterday and he has had no symptoms since then and has done well I spoke to Dr. Renee He did evaluate those ECGs and did not feel the need to pursue any cardiac workup at this time He will see him in the office Cardiac medications to continue unchanged Objective - Vital Signs Vital signs: Vital Signs Temp 97.7 F 10/10/18 04:00 Pulse 63 10/10/18 04:00 Resp 17 10/10/18 04:00 BP 119/80 10/10/18 04:00 Pulse Ox 96 10/10/18 04:00 Intake & Output 10/10/18 10/10/18 10/11/18 06:59 18:59 06:59 Intake Total 240 Output Total 250 Balance -250 240 Weight 82.7 kg Intake: Oral 240 Output: Urine 250 Other: Voiding Method Toilet # Voids 2 - Labs CBC & Chem 7: 10/10/18 06:09 10/08/18 14:37 Labs: Abnormal Lab Results - Last 24 Hours (Table) 10/10/18 Range/Units 06:09 APTT 37.0 H (22.0-30.0) sec Microbiology - Last 24 Hours (Table) 10/08/18 14:37 Blood Culture - Preliminary Blood No Growth after 48 hours
--- NOTE | 2018-10-12 09:21 | DS ---
DISCHARGE SUMMARY DATE OF ADMISSION: 10/08/2018 DATE OF DISCHARGE: 10/10/2018 PRINCIPAL DIAGNOSES: 1. Fever, etiology undetermined. 2. Recent coronary artery disease. 3. Ischemic cardiomyopathy. 4. Essential hypertension. 5. Hypothyroidism. 6. Remote history of carcinoma of thyroid. HISTORY OF PRESENT ILLNESS: This gentleman presents to the emergency room with fever and chills. The patient recently had a myocardial infarction. In view of this, patient seen in the emergency room was noted to have a borderline troponin elevation 0.034. Subsequent troponins are negative. EKG shows anterior wall EKG changes. There was minimal ST elevations, difficult to say if significant. In view of this, patient was admitted to the hospital. Initially started on heparin and was seen by Cardiology. Echocardiogram reveals hypokinetic anterior wall. The patient had hardly any changes from previous. Troponins were pretty much flat. The patient did not feel to have had an ischemic event. The patient's fever is unexplainable. Per the patient, after the initial one temperature did not have any further fever, he did not appear septic. He did not have any other symptoms. The patient was re-evaluated by the rounding and backing machine operator, who is the patient's regular counselor dormitory. Patient subsequently discharged home with plan of continuing same medications as the patient was prior to admission. The patient's condition is guarded. Prognosis guarded. Condition discussed with the patient. All his questions were answered. He is discharged home on medications which include: 1. Losartan 50 mg daily. 2. Aspirin 81 mg daily. 3. Atorvastatin 80 mg daily. 4. Sublingual nitroglycerin p.r.n. 5. Spironolactone 12.5 mg daily. 6. Brilinta 90 mg b.i.d. 7. Levothyroxine 175 mcg daily. 8. Metoprolol tartrate 25 mg p.o. b.i.d. Activity as tolerated. Patient advised to pace himself. The patient to resume cardiac rehab in one week. Prognosis remains guarded. The patient will follow up in the outpatient. MMFABIANL / ELBAN: [id number] /
== END 2018-10-10 08:57 | disposition home or self-care (01) ==
LOC: EC 13:41 → 3SCARD 16:54
PROVIDERS: ADMIT Internal Medicine; ATTEND Internal Medicine
DX: R50.9 Fever, unspecified (principal); R77.8 Other specified abnormalities of plasma proteins; R05 Cough; R53.1 Weakness; D72.829 Elevated white blood cell count, unspecified; J34.89 Other specified disorders of nose and nasal sinuses; I25.10 Atherosclerotic heart disease of native coronary artery without angina pectoris; I25.5 Ischemic cardiomyopathy; I10 Essential (primary) hypertension; I25.2 Old myocardial infarction; E78.5 Hyperlipidemia, unspecified; E89.0 Postprocedural hypothyroidism; N40.0 Benign prostatic hyperplasia without lower urinary tract symptoms; K21.9 Gastro-esophageal reflux disease without esophagitis; Z95.5 Presence of coronary angioplasty implant and graft; Z79.890 Hormone replacement therapy; Z79.82 Long term (current) use of aspirin; Z79.899 Other long term (current) drug therapy; Z79.02 Long term (current) use of antithrombotics/antiplatelets; Z88.0 Allergy status to penicillin; Z85.850 Personal history of malignant neoplasm of thyroid; Z87.442 Personal history of urinary calculi; Z86.19 Personal history of other infectious and parasitic diseases; Z86.018 Personal history of other benign neoplasm; Z80.0 Family history of malignant neoplasm of digestive organs; Z80.52 Family history of malignant neoplasm of bladder; Z80.42 Family history of malignant neoplasm of prostate
CPT/HCPCS: 96376; 96361; 96365; 96366; 99285; 36415; 93005; 93306; 80053; 85652; 83605; 84484; 85025 ×3; 85730 ×2; 86140; 81003; 87040; 87502; 71046; G0378 ×3; J1644 ×3

== ENCOUNTER → 2019-07-07 | Outpatient (CLI) | payer MEDICARE ==
[2019-07-07 07:53] LABS: Appearance,Urine Clear (Clear); Bilirubin,Urine Negative (Negative); Blood,Urine Negative (Negative); Color,Urine Yellow; Glucose,Urine (UA) Negative (Negative); Ketones,Urine Negative (Negative); Leukocyte Esterase,Urine Negative (Negative); Nitrite,Urine Negative (Negative); PH, Urine 5.5 (5.0-8.0); Protein,Urine Negative (Negative); Specific Gravity,Urine 1.019 (1.001-1.035); Urobilinogen,Urine <2.0 mg/dL (<2.0)
[2019-07-07 08:02] LABS: HCT 46.9 % (39.0-53.0); HGB 15.1 gm/dL (13.0-17.5); MCH 29.5 pg (25.0-35.0); MCHC 32.1 g/dL (31.0-37.0); MCV 91.7 fL (80.0-100.0); Mean Platelet Volume 7.2; Platelet Count 188 k/uL (150-450); RBC 5.11 m/uL (4.30-5.90); RDW 12.9 % (11.5-15.5); WBC 6.7 k/uL (3.8-10.6)
[2019-07-07 18:14] LABS: African American GFR (CKD) 77.9 (60.0-200.0); Albumin 4.1 g/dL (3.80-4.90); Albumin/Globulin Ratio 2.05 (1.60-3.17); Anion Gap 6.8 mmol/L (4.00-12.00); BUN/Creat Ratio 18.18 Ratio (12.00-20.00); Calcium 9.2 mg/dL (8.7-10.3); Carbon Dioxide 27.2 mmol/L (21.6-31.8); Chol/HDL Ratio 2.53; LDL Cholesterol,Calculated 62.4 mg/dL (0.0-131.0); Non-African American GFR(CKD) 67.2 (60.0-200.0); Potassium 4.8 mmol/L (3.5-5.5); Total Bilirubin 0.8 mg/dL (0.3-1.2); Total Protein 6.1 g/dL (6.2-8.2); VLDL Calculation 18.6 mg/dL (5.00-40.00)
== END | disposition home or self-care (01) ==
LOC: LABWHC1 06:54
PROVIDERS: ATTEND Internal Medicine
DX: Z12.5 Encounter for screening for malignant neoplasm of prostate (principal); I42.0 Dilated cardiomyopathy; I25.10 Atherosclerotic heart disease of native coronary artery without angina pectoris; E78.5 Hyperlipidemia, unspecified
CPT/HCPCS: 80061; 80053; 85027; 81003; 36415; G0103

== ENCOUNTER → 2020-02-21 | Outpatient (CLI) | payer MEDICARE ==
[2020-02-21 08:21] LABS: Albumin 4.1 g/dL (3.5-5.0); Potassium 4.9 mmol/L (3.5-5.1); Total Bilirubin 0.9 mg/dL (0.2-1.3); Total Protein 6.8 g/dL (6.3-8.2)
--- NOTE | 2020-02-22 08:39 | CT ---
EXAMINATION TYPE: CT angio chest DATE OF EXAM: 02/21/2020 COMPARISON: Radiograph 10/08/2018 HISTORY: 74-year-old male Thoracic aortic aneurysm found on ECHO. Patient having no complaints. TECHNIQUE: Contiguous axial scanning of the chest performed without and with IV Contrast, patient in jected with 100ml mL of Isovue 370. Coronal/sagittal MIP reconstructions performed. 3-D reconstructio ns generated on a dedicated independent workstation. CT DLP: 824.5 mGycm Automated exposure control for dose reduction was used. FINDINGS: Heart normal size. Trace anterior pericardial effusion measuring 4 mm thick. Dense LAD calcifications are present. Aortic root measures 3.0 cm. Upper ascending aorta ectatic and 3.8 cm (on coronal series). Proximal arch is ectatic at 3.6 cm. Mid arch measures 3.3 cm. Bovine configuration to the aortic arch with minimal atherosclerotic arch calcifications. Upper descending thoracic aorta ectatic at 3.2 cm. Mid descending thoracic aorta ectatic at 2.6 cm. Lower descending thoracic aorta ectatic at 2.7 cm. No evidence for aortic dissection. Initial noncontrast images show no evidence for acute intramural h ematoma. Scattered nonenlarged lymph nodes measuring up to 6 mm. No thoracic lymphadenopathy by CT size criter ia. Minimal strandy dependent atelectasis particularly on the right. No consolidation or pleural effusion . There is a small hiatal hernia. Visualized upper abdomen shows an incidental 2.1 x 1.0 cm lipoma at t he junction of the second and third portions of the duodenum. Bones: Mild to moderate endplate spondylosis and degenerative disc disease midthoracic spine. No osse ous destructive process. IMPRESSION: 1. ECTATIC THORACIC AORTA WITH THE UPPER ASCENDING THORACIC AORTA MEASURING UP TO 3.8 CM. 2. DENSE MID LAD CALCIFICATIONS. 3. SMALL HIATAL HERNIA.
== END | disposition home or self-care (01) ==
LOC: RADCTMAIN 07:14
PROVIDERS: ATTEND Internal Medicine Interventional Cardiology
DX: I71.2 Thoracic aortic aneurysm, without rupture (principal); K44.9 Diaphragmatic hernia without obstruction or gangrene; E78.2 Mixed hyperlipidemia; I10 Essential (primary) hypertension; Z88.0 Allergy status to penicillin
CPT/HCPCS: 80061; 80053; 71275; Q9967

== ENCOUNTER → 2021-09-29 | Outpatient (CLI) | payer MEDICARE ==
[2021-09-29 10:28] LABS: ALT 27 U/L (10-49); AST 30 U/L (14-35); Chol/HDL Ratio 2.78 Ratio; LDL Cholesterol,Calculated 85.4 mg/dL (0.0-131.0); VLDL Calculation 13.82 mg/dL (5.00-40.00)
== END | disposition home or self-care (01) ==
LOC: LABWHC1 07:10
PROVIDERS: ATTEND Nurse Practitioner Adult Health
DX: E78.2 Mixed hyperlipidemia (principal)
CPT/HCPCS: 36415; 80061; 84450; 84460

== ENCOUNTER → 2022-04-03 | Outpatient (CLI) | payer MEDICARE ==
[2022-04-03 10:53] LABS: ALT 39 U/L (10-49); AST 37 U/L (14-35); LDL Cholesterol,Calculated 62.2 mg/dL (0.0-131.0); VLDL Calculation 16.96 mg/dL (5.00-40.00)
== END | disposition home or self-care (01) ==
LOC: LABWHC1 07:08
PROVIDERS: ATTEND Internal Medicine Interventional Cardiology
DX: E78.2 Mixed hyperlipidemia (principal)
CPT/HCPCS: 36415; 80061; 84450; 84460

== ENCOUNTER → 2022-10-20 | Outpatient (CLI) | payer MEDICARE ==
--- NOTE | 2022-10-20 19:27 | XR ---
EXAMINATION TYPE: XR chest 2V DATE OF EXAM: 10/20/2022 2:29 PM COMPARISON: Chest radiographs from 10/08/2018, CTA chest 02/21/2020. TECHNIQUE: XR chest 2V Frontal and lateral views of the chest. CLINICAL INDICATION:Male, 77 years old with history of M94.0 CHONDROCOSTAL JUNCTION SYNDROME [TIETZE] ; FINDINGS: Lungs/Pleura: There is no evidence of pleural effusion, focal consolidation, or pneumothorax. Pulmonary vascularity: Unremarkable. Heart/mediastinum: Cardiomediastinal silhouette is stable. Ectasia of the upper descending thoracic a lucero redemonstrated. Atherosclerotic calcifications are seen in the aorta. Musculoskeletal: No acute osseous pathology. IMPRESSION: No acute cardiopulmonary disease/process. No significant change from prior examination.
== END | disposition home or self-care (01) ==
LOC: RADXRMAIN 14:13
PROVIDERS: ATTEND Internal Medicine Geriatric Medicine
DX: M94.0 Chondrocostal junction syndrome [Tietze] (principal)
CPT/HCPCS: 71046

== ENCOUNTER → 2022-11-24 | Outpatient (CLI) | payer MEDICARE ==
[2022-11-24 11:04] LABS: Chol/HDL Ratio 2.39 Ratio; LDL Cholesterol,Calculated 66.1 mg/dL (0.0-131.0)
[2022-11-24 11:49] LABS: ALT 30 U/L (10-49); AST 41 U/L (14-35); African American GFR (CKD) 68.1 (60.0-200.0); Albumin 4.1 g/dL (3.8-4.9); Albumin/Globulin Ratio 1.71 (1.60-3.17); Alkaline Phosphatase 93 U/L (41-126); BUN/Creat Ratio 16.08 Ratio (12.00-20.00); Blood Urea Nitrogen 19.3 mg/dL (9.0-27.0); Calcium 9.1 mg/dL (8.7-10.3); Carbon Dioxide 24.3 mmol/L (20.0-27.5); Chloride 107 mmol/L (96-109); Globulin 2.4 g/dL (1.6-3.3); Glucose 95 mg/dL (70-110); Non-African American GFR(CKD) 58.8 (60.0-200.0); Potassium 4.6 mmol/L (3.5-5.5); Sodium 142 mmol/L (135-145); Total Protein 6.5 g/dL (6.2-8.2)
== END | disposition home or self-care (01) ==
LOC: LABWHC1 07:11
PROVIDERS: ATTEND Internal Medicine Interventional Cardiology
DX: I10 Essential (primary) hypertension (principal); E78.2 Mixed hyperlipidemia
CPT/HCPCS: 36415; 80053; 80061

== ENCOUNTER → 2023-04-13 | Outpatient (CLI) | payer MEDICARE ==
[2023-04-13 11:18] LABS: Basophils # (A) 0.04 X 10*3/uL (0.00-0.10); Basophils % (A) 0.6 %; Eosinophils # (A) 0.29 X 10*3/uL (0.04-0.35); Eosinophils % (A) 4.4 %; HCT 45.9 % (39.6-50.0); HGB 15.1 d/dL (13.0-17.0); Lymphocytes # (A) 1.79 X 10*3/uL (0.90-5.00); Lymphocytes % (A) 27.4 %; MCH 29.6 pg (27.0-32.0); MCHC 32.9 d/dL (32.0-37.0); Monocytes # (A) 0.74 X 10*3/uL (0.20-1.00); Monocytes % (A) 11.3 %; NRBC Per 100 WBC 0 X 10*3/uL (0.00-0.01); Neutrophils # (A) 3.66 X 10*3/uL (1.80-7.70); Platelet Count 212 X 10*3/uL (140-440); RDW 12.5 % (11.5-14.5); WBC 6.54 X 10*3/uL (4.50-10.00)
[2023-04-13 11:25] LABS: ALT 23 U/L (10-49); AST 34 U/L (14-35); Albumin 4.1 d/dL (3.8-4.9); Albumin/Globulin Ratio 1.71 Ratio (1.60-3.17); Alkaline Phosphatase 107 U/L (41-126); BUN/Creat Ratio 13.38 Ratio (12.00-20.00); Blood Urea Nitrogen 17.4 mg/dL (9.0-27.0); Calcium 9.4 mg/dL (8.7-10.3); Carbon Dioxide 27.3 mmol/L (21.6-31.8); Chloride 108 mmol/L (96-109); Chol/HDL Ratio 2.24 Ratio; Globulin 2.4 d/dL (1.6-3.3); Glucose 87 mg/dL (70-110); LDL Cholesterol,Calculated 54.8 mg/dL (0.0-131.0); Potassium 4.8 mmol/L (3.5-5.5); Sodium 145 mmol/L (135-145); Total Bilirubin 0.8 mg/dL (0.3-1.2); Total Protein 6.5 d/dL (6.2-8.2); VLDL Calculation 12.06 mg/dL (5.00-40.00)
== END | disposition home or self-care (01) ==
LOC: LABWHC1 07:26
PROVIDERS: ATTEND Internal Medicine Geriatric Medicine
DX: I25.10 Atherosclerotic heart disease of native coronary artery without angina pectoris (principal); E78.5 Hyperlipidemia, unspecified; N40.1 Benign prostatic hyperplasia with lower urinary tract symptoms; I42.9 Cardiomyopathy, unspecified; R73.9 Hyperglycemia, unspecified
CPT/HCPCS: 36415; 80053; 80061; 83036; 84153; 84443; 85025

== ENCOUNTER → 2023-04-23 | Outpatient (CLI) | payer MEDICARE ==
[2023-04-23 13:11] LABS: African American GFR (CKD) 71 (>60 ml/min/1.73 sqM); Blood Urea Nitrogen 21 mg/dL (9-20); Non-African American GFR(CKD) 62 (>60 ml/min/1.73 sqM)
--- NOTE | 2023-04-23 18:36 | CT ---
EXAMINATION TYPE: CT soft tissue neck wo/w con DATE OF EXAM: 04/23/2023 COMPARISON: None HISTORY: 77-year-old male K11.9 DISEASE OF SALIVARY GLAND, UNSPECIFIED, swelling to Rt side of neck ( marked with a BB) TECHNIQUE: Contiguous axial scanning of the soft tissues of the neck performed without and with IV Co ntrast, patient injected with 100 mL of Isovue 370. Coronal/sagittal reconstructions performed. CT DLP: 614.9 mGycm Automated exposure control for dose reduction was used. FINDINGS: There is mild atherosclerotic arch calcification with bovine configuration to the aortic arch. Slight ly dominant left vertebral artery. Short retropharyngeal course proximal left ICA. This causes some m ild impression on the left back wall of the hypopharynx. Nasopharynx is clear. Mild bilateral palatine tonsillar hypertrophy with punctate calcification on both sides suggesting se quela of prior infection. Epiglottis and prevertebral soft tissues are satisfactory. The glottic and subglottic structures as well as the tracheal column and visualized upper lungs are c lear. Nonvisualization of thyroid gland, either very atrophic or surgically absent. Both submandibular glands are visualized and appear relatively symmetric. Overlying palpable marker h ere. No suspicious underlying lymphadenopathy is seen. The parotid glands are atrophic and there are small parotid space lymph nodes on the right measuring up to 5 mm. Visualized intracranial structures, the portions of the visualized orbits and globes, paranasal sinus es, and mastoid air cells appear clear. Bones: Moderate spondylotic change C5-T1 levels. Degenerative grade 1 anterolisthesis C7-T1 and T1-T2 . IMPRESSION: 1. PALPABLE MARKER OVERLIES THE RIGHT SUBMANDIBULAR GLAND. NO DISCRETE MASS, ASYMMETRIC INFLAMMATION, OR SIALOLITH IS SEEN. 2. THERE ARE ASYMMETRIC, BUT SMALL RIGHT PAROTID SPACE LYMPH NODES MEASURING UP TO 5 MM, LIKELY REACT SHAREE. 3. NONVISUALIZATION OF THE THYROID GLAND, EITHER VERY ATROPHIC OR SURGICALLY ABSENT.
== END | disposition home or self-care (01) ==
LOC: RADCTMAIN 12:40
PROVIDERS: ATTEND Internal Medicine Geriatric Medicine
DX: K11.8 Other diseases of salivary glands (principal)
CPT/HCPCS: 82565; 84520; 70492; 36415; Q9967

== ENCOUNTER → 2023-08-04 | Outpatient (CLI) | payer MEDICARE ==
[2023-08-04 09:28] LABS: African American GFR (CKD) 69 (>60 ml/min/1.73 sqM); Anion Gap 4 mmol/L; Blood Urea Nitrogen 23 mg/dL (9-20); Calcium 9.1 mg/dL (8.4-10.2); Carbon Dioxide 26 mmol/L (22-30); Chloride 109 mmol/L (98-107); Glucose 85 mg/dL (74-99); Non-African American GFR(CKD) 60 (>60 ml/min/1.73 sqM); Sodium 139 mmol/L (137-145)
[2023-08-04 09:36] LABS: NT-Pro-B-Type Natriuretic Pept 959 pg/mL
== END | disposition home or self-care (01) ==
LOC: LABWHC1 08:12
PROVIDERS: ATTEND Nurse Practitioner Adult Health
DX: I25.5 Ischemic cardiomyopathy (principal); I50.22 Chronic systolic (congestive) heart failure
CPT/HCPCS: 36415; 80048; 83880

== ENCOUNTER → 2023-09-17 | Outpatient (CLI) | payer MEDICARE ==
[2023-09-17 16:06] LABS: Blood Urea Nitrogen 23.7 mg/dL (9.0-27.0); Carbon Dioxide 25.6 mmol/L (21.6-31.8); Chloride 106 mmol/L (96-109); Potassium 4.9 mmol/L (3.5-5.5); Sodium 143 mmol/L (135-145)
[2023-09-17 16:09] LABS: NT-Pro-B-Type Natriuretic Pept 595 pg/mL (0-450)
== END | disposition home or self-care (01) ==
LOC: LABWHC1 08:06
PROVIDERS: ATTEND Internal Medicine Interventional Cardiology
DX: I25.5 Ischemic cardiomyopathy (principal)
CPT/HCPCS: 36415; 80051; 82565; 83880; 84520

== ENCOUNTER → 2023-12-02 | Outpatient (CLI) | payer MEDICARE ==
[2023-12-02 15:49] LABS: ALT 27 U/L (10-49); AST 36 U/L (14-35); Albumin 4.4 g/dL (3.8-4.9); Albumin/Globulin Ratio 1.69 Ratio (1.60-3.17); Alkaline Phosphatase 119 U/L (41-126); BUN/Creat Ratio 14.93 Ratio (12.00-20.00); Blood Urea Nitrogen 22.4 mg/dL (9.0-27.0); Calcium 9.7 mg/dL (8.7-10.3); Carbon Dioxide 25.4 mmol/L (21.6-31.8); Chloride 104 mmol/L (96-109); Chol/HDL Ratio 2.42 Ratio; Globulin 2.6 g/dL (1.6-3.3); Glucose 97 mg/dL (70-110); LDL Cholesterol,Calculated 66.3 mg/dL (0.0-131.0); Sodium 139 mmol/L (135-145); Total Bilirubin 0.7 mg/dL (0.3-1.2); VLDL Calculation 14.72 mg/dL (5.00-40.00)
[2023-12-02 15:50] LABS: NT-Pro-B-Type Natriuretic Pept 906 pg/mL (0-450)
== END | disposition home or self-care (01) ==
LOC: LABWHC1 07:38
PROVIDERS: ATTEND Nurse Practitioner Adult Health
DX: I10 Essential (primary) hypertension (principal); E78.2 Mixed hyperlipidemia; I25.5 Ischemic cardiomyopathy
CPT/HCPCS: 36415; 80053; 80061; 83880

== ENCOUNTER → 2024-05-24 | Outpatient (CLI) | payer MEDICARE ==
[2024-05-24 10:17] LABS: Basophils # (A) 0.03 X 10*3/uL (0.00-0.10); Basophils % (A) 0.4 %; Eosinophils # (A) 0.31 X 10*3/uL (0.04-0.35); Eosinophils % (A) 4.5 %; HCT 48.3 % (39.6-50.0); HGB 15.4 g/dL (13.0-17.0); Lymphocytes # (A) 1.64 X 10*3/uL (0.90-5.00); Lymphocytes % (A) 23.8 %; MCH 29.1 pg (27.0-32.0); MCHC 31.9 g/dL (32.0-37.0); MCV 91.1 FL (80.0-97.0); Mean Platelet Volume 9.7 FL (9.5-12.2); Monocytes # (A) 0.83 X 10*3/uL (0.20-1.00); NRBC Per 100 WBC 0 X 10*3/uL (0.00-0.01); Neutrophils # (A) 4.07 X 10*3/uL (1.80-7.70); Platelet Count 236 X 10*3/uL (140-440); RDW 12.7 % (11.5-14.5)
[2024-05-24 10:46] LABS: BUN/Creat Ratio 15.29 Ratio (12.00-20.00); Blood Urea Nitrogen 21.4 mg/dL (9.0-27.0); Chol/HDL Ratio 2.32 Ratio; Glucose 89 mg/dL (70-110); VLDL Calculation 12.82 mg/dL (5.00-40.00)
[2024-05-24 10:47] LABS: ALT 22 U/L (10-49); AST 31 U/L (14-35); Albumin 3.9 g/dL (3.8-4.9); Alkaline Phosphatase 99 U/L (41-126); Calcium 8.9 mg/dL (8.7-10.3); Carbon Dioxide 25.2 mmol/L (21.6-31.8); Chloride 107 mmol/L (96-109); Globulin 2.3 g/dL (1.6-3.3); LDL Cholesterol,Calculated 58.8 mg/dL (0.0-131.0); Potassium 4.6 mmol/L (3.5-5.5); Sodium 142 mmol/L (135-145); Total Bilirubin 0.6 mg/dL (0.3-1.2); Total Protein 6.2 g/dL (6.2-8.2)
[2024-05-24 13:27] LABS: NT-Pro-B-Type Natriuretic Pept 878 pg/mL (0-450)
== END | disposition home or self-care (01) ==
LOC: LABWHC1 07:09
PROVIDERS: ATTEND Nurse Practitioner Adult Health
DX: I25.10 Atherosclerotic heart disease of native coronary artery without angina pectoris (principal); I25.5 Ischemic cardiomyopathy; E78.2 Mixed hyperlipidemia; R73.9 Hyperglycemia, unspecified
CPT/HCPCS: 36415; 80053; 80061; 83036; 83880; 84443; 85025

== ENCOUNTER → 2024-12-15 | Outpatient (CLI) | payer MEDICARE ==
[2024-12-15 15:35] LABS: ALT 32 U/L (10-49); AST 37 U/L (14-35); Albumin 4.2 g/dL (3.8-4.9); Albumin/Globulin Ratio 1.62 Ratio (1.60-3.17); Alkaline Phosphatase 98 U/L (41-126); BUN/Creat Ratio 13.29 Ratio (12.00-20.00); Blood Urea Nitrogen 18.6 mg/dL (9.0-27.0); Calcium 9.3 mg/dL (8.7-10.3); Carbon Dioxide 25.3 mmol/L (21.6-31.8); Chloride 106 mmol/L (96-109); Chol/HDL Ratio 2.36 Ratio; Globulin 2.6 g/dL (1.6-3.3); Glucose 86 mg/dL (70-110); LDL Cholesterol,Calculated 61.7 mg/dL (0.0-131.0); Potassium 4.6 mmol/L (3.5-5.5); Sodium 141 mmol/L (135-145); Total Bilirubin 0.8 mg/dL (0.3-1.2); Total Protein 6.8 g/dL (6.2-8.2); VLDL Calculation 14.34 mg/dL (5.00-40.00)
[2024-12-15 17:12] LABS: NT-Pro-B-Type Natriuretic Pept 801 pg/mL (0-450)
== END | disposition home or self-care (01) ==
LOC: LABWHC1 07:29
PROVIDERS: ATTEND Internal Medicine Interventional Cardiology
DX: I25.5 Ischemic cardiomyopathy (principal); E78.2 Mixed hyperlipidemia
CPT/HCPCS: 36415; 80053; 80061; 83880